=== PATIENT | male | born 1935 | race Caucasian/White ===

== ENCOUNTER → 2017-04-07 | Outpatient (CLI) | payer MEDICARE, OTHER ==
--- NOTE | 2017-04-08 17:02 | RADIOLOGY REPORT (SQ) ---
EXAM DESCRIPTION: PET CT LIMITED COMPLETED DATE/TIME: 04/07/2017 9:49 pm REASON FOR STUDY: PULMONARY NODULE R91.1 SOLITARY PULMONARY NODULE R91.8 OTHER NONSPECIFIC ABNORMA L FINDING OF LUNG FIELD COMPARISON: CT chest 03/12/2017 RADIONUCLIDE AND DOSE: 8.8 mCi F18 FDG The route of agent administration: Intravenous FASTING BLOOD SUGAR: 95 mg/dl CONTRAST TYPE AND DOSE: No CT contrast given. TECHNIQUE: Blood glucose level was verified. Above dose of FDG was injected intravenously. 2-D seg mented attenuation correction images were obtained from the base of the skull to the midthighs. Nonc ontrast CT images were obtained for attenuation correction and fusion with emission images. CT image s were performed without oral or intravenous contrast and are not sensitive for parenchymal lesions. A series of overlapping emission PET images were obtained. Images reviewed and manipulated at [facility] work station by the radiologist. Images stored on PACS. LIMITATIONS: None. FINDINGS: HEAD AND NECK: No areas of abnormal metabolic activity in the soft tissues of the head and neck. CHEST: At the extreme left lung apex, a 2.5 x 2.6 cm spiculated mass is present with SUV 13.4, compat ible with malignancy. Remainder of the lungs demonstrate advanced peripheral pulmonary fibrosis with honeycombing. There i s some low level metabolic activity in the periphery of the right upper lobe adjacent to the major fi ssure, likely indicating active inflammation with SUV of 1.6. No other pulmonary nodules or masses. No pleural effusions. No supraclavicular, hilar, or mediastin al metabolically active adenopathy. ABDOMEN AND PELVIS: No areas of abnormal metabolic activity in the abdomen or pelvis. Expected physi ologic activity is present in the genitourinary system and bowel. PROXIMAL LOWER EXTREMITIES: No areas of abnormal metabolic activity in the soft tissues of the lower extremities. BONES: No abnormal metabolic activity in the visualized skeleton. ADDITIONAL CT FINDINGS: Air-fluid level left maxillary sinus from acute sinusitis. Old sternotomy an d CABG. Mild cardiomegaly. Small hiatal hernia. Left pelvic kidney. OTHER: No other significant findings. IMPRESSION: 2.5 x 2.6 cm spiculated left apical lung mass with SUV of 13.4 No metabolically active supraclavicular, hilar, or mediastinal adenopathy. No PET-CT evidence of dis tant metastatic disease. TECHNICAL DOCUMENTATION: JOB ID: [id number] [employer]- All Rights Reserved
== END ==
LOC: RAD 18:38
PROVIDERS: ATTEND Internal Medicine Critical Care Medicine
DX: R91.1 Solitary pulmonary nodule (principal); J84.10 Pulmonary fibrosis, unspecified
CPT/HCPCS: 78814; A9552

== ENCOUNTER → 2017-08-27 | Outpatient (CLI) | payer MEDICARE, OTHER ==
--- NOTE | 2017-08-27 13:28 | RADIOLOGY REPORT (SQ) ---
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 TECHNIQUE: Frontal and lateral radiographic views of the chest acquired. LIMITATIONS: None. FINDINGS: LUNGS AND PLEURA: Moderate asymmetrical interstitial change greater on the right. No foc al masses. No pleural effusions. Left apical pleural thickening MEDIASTINUM AND HILAR STRUCTURES: No masses or contour abnormalities. HEART AND VASCULATURE: Heart normal size. No evidence for failure. BONY STRUCTURES: No acute findings. HARDWARE: Midline sternotomy wires OTHER: No other significant finding. IMPRESSION: Moderate asymmetrical interstitial change. More prominent than on the previous chest x- ray of 10/13/2015. Differential includes interstitial infiltrate versus asymmetrical interstitial pul monary edema. TECHNICAL DOCUMENTATION: JOB ID: [id number] [employer]- All Rights Reserved
== END ==
LOC: OD 11:53
PROVIDERS: ATTEND Internal Medicine Medical Oncology
DX: C34.92 Malignant neoplasm of unspecified part of left bronchus or lung (principal)
CPT/HCPCS: 71046

== ENCOUNTER → 2018-02-03 | Outpatient (CLI) | payer MEDICARE, OTHER ==
--- NOTE | 2018-02-03 15:30 | RADIOLOGY REPORT (SQ) ---
EXAM DESCRIPTION: CT CHEST WITHOUT COMPLETED DATE/TIME: 02/03/2018 1:07 pm REASON FOR STUDY: J84.9 INTERSTITIAL PULMONARY DISEASE, UNSPECIFIED J84.9 INTERSTITIAL PULMONARY DI SEASE, UNSPECIFIED COMPARISON: 2015. TECHNIQUE: CT scan performed of the chest without intravenous contrast. Images reviewed with lung, soft tissue and bone windows. Reconstructed coronal and sagittal MPR images reviewed. All images st ored on PACS. All CT scanners at this facility use dose modulation, iterative reconstruction, and/or weight based d osing when appropriate to reduce radiation dose to as low as reasonably achievable (ALARA). [facility]: Dose Right [facility]: CareDose [facility]: Dose Right [facility]: Teradose 4D [facility]: Smart Liv[employer] Panels RADIATION DOSE: CT Rad equipment meets quality standard of care and radiation dose reduction techniq ues were employed. CTDIvol: 8.0 mGy. DLP: 308 mGy-cm. mGy. LIMITATIONS: No technical limitations. FINDINGS: LUNGS AND PLEURA: Upper and lower lobe interstitial changes with areas of subpleural fibro sis. Left lower lobe least affected. All lobes involved, however. Slightly progressive left apical scarring compared to prior. No pleural calcification. HILAR AND MEDIASTINAL STRUCTURES: Small nodes suspected. No bulky adenopathy. No esophageal dilatat ion. Small hiatal hernia. HEART AND VASCULAR STRUCTURES: Previous median sternotomy and CABG. No pericardial effusion. No aor tic aneurysm. UPPER ABDOMEN: No significant findings. Limited exam. THYROID AND OTHER SOFT TISSUES: No masses. No adenopathy. BONES: No significant finding. HARDWARE: None in the chest. OTHER: No other significant findings. IMPRESSION: Pulmonary fibrosis. Diffuse upper and lower lobe disease. TECHNICAL DOCUMENTATION: JOB ID: [id number] Quality ID # [id number]: Final reports with documentation of one or more dose reduction techniques (e.g., Au tomated exposure control, adjustment of the mA and/or kV according to patient size, use of iterative reconstruction technique) 2010 [employer]- All Rights Reserved Reading location - IP/workstation name: [email or web address]
== END ==
LOC: RAD 18:04
PROVIDERS: ATTEND Internal Medicine Critical Care Medicine
DX: J84.9 Interstitial pulmonary disease, unspecified (principal)
CPT/HCPCS: 71250

== ENCOUNTER → 2018-03-02 | Outpatient (CLI) | payer MEDICARE, OTHER ==
--- NOTE | 2018-03-03 08:15 | RADIOLOGY REPORT (SQ) ---
EXAM DESCRIPTION: PET CT SKULL/THIGH COMPLETED DATE/TIME: 03/02/2018 8:48 pm REASON FOR STUDY: ABNORMAL FINDINGS OF LUNG FIELD R91.8 OTHER NONSPECIFIC ABNORMAL FINDING OF LUNG FIELD COMPARISON: CT chest 11/22/2015, 02/03/2018 PET-CT 04/07/2017 RADIONUCLIDE AND DOSE: 12.8 mCi F18 FDG The route of agent administration: Intravenous FASTING BLOOD SUGAR: 101 mg/dl CONTRAST TYPE AND DOSE: No CT contrast given. TECHNIQUE: Blood glucose level was verified. Above dose of FDG was injected intravenously. 2-D seg mented attenuation correction images were obtained from the base of the skull to the midthighs. Nonc ontrast CT images were obtained for attenuation correction and fusion with emission images. CT image s were performed without oral or intravenous contrast and are not sensitive for parenchymal lesions. A series of overlapping emission PET images were obtained. Images reviewed and manipulated at [facility] work station by the radiologist. Images stored on PACS. LIMITATIONS: None. FINDINGS: HEAD AND NECK: No areas of abnormal metabolic activity in the soft tissues of the head and neck. CHEST: There is bandlike consolidation at the left lung apex, similar compared to 02/03/2018 CT chest likely lung fibrosis post radiation therapy for apical tumor. In this area, minimal metabolic activi ty SUV 2.1 is present (original mass on PET-CT 04/07/2017 left lung apex SUV 13.4). Remainder of the lungs exhibit extensive changes of interstitial pulmonary fibrosis with honeycomb ap pearance of both mid and lower lungs. There is patchy metabolic activity in the right lower lobe ran ging from 1.5 to 3.2 SUV. Patchy uptake left lower lobe SUV 2.0. This could represent superimposed pneumonia. No pleural effusions. No pneumothorax. No other dominant lung parenchymal mass. ABDOMEN AND PELVIS: No areas of abnormal metabolic activity in the abdomen or pelvis. Expected physi ologic activity is present in the genitourinary system and bowel. PROXIMAL LOWER EXTREMITIES: No areas of abnormal metabolic activity in the soft tissues of the lower extremities. BONES: No abnormal metabolic activity in the visualized skeleton. ADDITIONAL CT FINDINGS: Heavily calcified carotid bifurcations. Scleral band right globe. Hiatal he rnia. Old sternotomy for CABG. Cardiomegaly. Left pelvic kidney. Radiotherapy prostate treatment seeds OTHER: Liver background activity 1.9 SUV. Blood pool background activity 1.5 SUV IMPRESSION: Post left apical lung mass radiation therapy. Bandlike fibrosis at the lung apex is pre sent with significant decrease in SUV compared to PET-CT 04/07/2017. End-stage appearance of pulmonary fibrosis in both lungs with patchy metabolic activity, could repres ent active inflammation or patchy pneumonia. TECHNICAL DOCUMENTATION: JOB ID: [id number] [employer]- All Rights Reserved Reading location - IP/workstation name: [email or web address]
== END ==
LOC: RAD 18:01
PROVIDERS: ATTEND Internal Medicine Critical Care Medicine
DX: R91.8 Other nonspecific abnormal finding of lung field (principal)
CPT/HCPCS: 78815; A9552

== ENCOUNTER 2018-03-29 00:36 | Inpatient (IN) | payer MEDICARE, OTHER ==
[2018-03-29] MEDS ORDERED: IPRATROPIUM/ALBUTEROL 0.5-2.5 MG/3 ML AMPUL NEB ONE (00:58)
--- NOTE | 2018-03-29 00:58 | ER Document Report ---
ED General - General Stated Complaint: DIFFICULTY BREATHING Time Seen by Provider: 03/29/18 00:46 Notes: Patient is an 82-year-old male with a history of COPD, CHF, coronary disease. He presents with difficulty breathing. He also says he has a history of cystic fibrosis. He says is followed by the [facility], Dr. Daniel. I question whether not he really has true cystic fibrosis as I have never seen a cystic fibrosis patient lifted the age of 82. He could potentially mean pulmonary fibrosis. I did review his previous admission records and do not see cystic fibrosis listed anywhere in his previous H&P's. Patient says he has had positive difficulty breathing today. He wears 6 L oxygen at home normally. Medics that it could be some stress related being that water is starting to encroach on the house and they are anxious about that. He is a former smoker. Denies any chest pain. No recent fevers or infections. No other complaints at this time. TRAVEL OUTSIDE OF THE [place] IN LAST 30 DAYS: No - Related Data Allergies/Adverse Reactions: Sulfa (Sulfonamide Antibiotics) Allergy (Severe, Verified 01/02/12 08:50) hallucinates Past Medical History - Social History Smoking Status: Former Smoker Frequency of alcohol use: None Drug Abuse: None Family History: Reviewed & Not Pertinent - Past Medical History Cardiac Medical History: Reports: Hx Coronary Artery Disease, Hx Hypertension Denies: Hx Heart Attack - JUST PX BREATHING,DISCOVERED HEART ISSUES Pulmonary Medical History: Reports: Hx Asthma - quit taking symbicort, Hx COPD - hx tb 1992 Denies: Hx Bronchitis, Hx Pneumonia Neurological Medical History: Denies: Hx Cerebrovascular Accident, Hx Seizures GI Medical History: Denies: Hx Hepatitis, Hx Hiatal Hernia, Hx Ulcer Musculoskeletal Medical History: Reports Hx Arthritis Infectious Medical History: Denies: Hx Hepatitis Past Surgical History: Reports: Hx Cardiac Surgery - bypass 2013, Hx Genitourinary Surgery - Hernia repair, Hx Open Heart Surgery - CABG 2014,. Denies: Hx Pacemaker - Immunizations Hx Diphtheria, Pertussis, Tetanus Vaccination: No Hx Pneumococcal Vaccination: 04/14/11 Review of Systems - Review of Systems Notes: My Normal Review Basic REVIEW OF SYSTEMS: CONSTITUTIONAL : Denies fever, chills, or sweats. Denies recent illness. EENT: Denies eye, ear, throat, or mouth pain or symptoms. Denies nasal or sinus congestion. CARDIOVASCULAR: Denies chest pain. RESPIRATORY: difficulty breathing GASTROINTESTINAL: Denies abdominal pain. Denies nausea, vomiting, or diarrhea. GENITOURINARY: Denies difficulty urinating, painful urination, burning, frequency, or blood in urine. MUSCULOSKELETAL: Denies neck or back pain or joint pain or swelling. SKIN: Denies rash or skin lesions. NEUROLOGICAL: Denies altered mental status or loss of consciousness. Denies headache. Denies weakness or paralysis or loss of use of either side. Denies problems with gait or speech. Denies sensory or motor loss. ALL OTHER SYSTEMS REVIEWED AND NEGATIVE. Physical Exam - Vital signs Vitals: Temp Resp BP Pulse Ox 99 F 14 127/69 H 97 03/29/18 00:57 03/29/18 00:57 03/29/18 00:57 03/29/18 00:57 - Notes Notes: General Appearance: Well nourished, alert, cooperative, no acute distress, no obvious discomfort. Low bit anxious. Vitals: reviewed, See vital signs table. Head: no swelling or tenderness to the head Eyes: PERRL, EOMI, Conjuctiva clear Mouth: No decreasd moisture Throat: No tonsillar inflammation, No airway obstruction, No lymphadenopathy Neck: Supple, no neck tenderness, Lungs: No wheezing, No rales, few scattered rhonchi in bases., No accessory muscle use, good air exchange bilaterally. Heart: Normal rate, Regular rythm, No murmur, no rub Abdomen: Normal BS, soft, No rigidity, No abdominal tenderness, No guarding, no rebound, Extremities: strength 5/5 in all extremities, good pulses in all extremities, no swelling or tenderness in the extremities, no edema. Skin: warm, dry, appropriate color, no rash Neuro: speech clear, oriented x 3, normal affect, responds appropriately to questions. Course - Re-evaluation Re-evalutation: 03/29/18 01:58 Patient stood up to urinate became very short of breath his oxygen saturation went into the 70s. Patient says that he will sometimes do this at home however I do not think that is accurate as I do not believe the patient regularly would desaturate to the 70s. His oxygen saturation is still in the 80s despite him sit down and not moving. I will place him on BiPAP as I feel this will better oxygenate him. Patient is agreeable to this plan. Lung real still does have some mild rhonchi in the bases but otherwise are clear. 03/29/18 06:35 Patient continues to have desaturations when taken off the BiPAP. I did speak with the hospitalist, Dr. Wilson, who agrees to admit the patient. Dictation of this chart was performed using voice recognition software; therefore, there may be some unintended grammatical errors. - Vital Signs Vital signs: Temp Pulse Resp BP Pulse Ox 99 F 14 132/75 H 98 03/29/18 00:57 03/29/18 06:01 03/29/18 06:01 03/29/18 06:01 - Laboratory Result Diagrams: 03/29/18 00:42 03/29/18 00:42 Laboratory results interpreted by me: 03/29/18 03/29/18 03/29/18 00:42 00:42 00:42 Hgb 12.9 L RDW 16.4 H Seg Neutrophils % 85.5 H Lymphocytes % 5.8 L Absolute Neutrophils 8.6 H VBG pH 7.45 H Sodium 130.7 L Chloride 93 L Glucose 113 H Direct Bilirubin 0.5 H Total Protein 6.0 L - EKG Interpretation by Me Additional EKG results interpreted by me: 03/29/18 00:57 EKG is reviewed and interpreted by me. EKG shows sinus rhythm with a rate of 91 bpm. Patient does have a left bundle branch block causing mild ST segment depression in leads V5 and V6. This is unchanged comparison to his old EKG from October 13, 2015. Discharge - Discharge Clinical Impression: Hypoxemia, Shortness of breath Condition: Stable Disposition: ADMITTED OBSERVATION Admitting Provider: Hospitalist Unit Admitted: Telemetry
[2018-03-29] MEDS ORDERED: DIPHENHYDRAMINE HCL 50 MG/ML VIAL IV ONE (01:05)
[2018-03-29 01:11] LABS: ABSOLUTE EOSINOPHILS # (AUTO) 0.1 10^3/uL (0.0-0.6); ABSOLUTE LYMPHOCYTES (AUTO) 0.6 10^3/uL (0.5-4.7); ABSOLUTE MONOCYTES (AUTO) 0.7 10^3/uL (0.1-1.4); ABSOLUTE NEUT (AUTO) 8.6 10^3/uL (1.7-8.2); BASOPHILS % (AUTO) 0.3 % (0-2); EOSINOPHILS % (AUTO) 1.2 % (0-6); HEMOGLOBIN 12.9 g/dL (13.5-17.0); LYMPHOCYTES % (AUTO) 5.8 % (13-45); MEAN CORPUSCULAR HEMOGLOBIN 28.8 pg (27.0-33.4); MEAN CORPUSCULAR HGB CONC 33.8 g/dL (32.0-36.0); MEAN CORPUSCULAR VOLUME 85 fl (80-97); MONOCYTES % (AUTO) 7.2 % (3-13); PLATELET COUNT 240 10^3/uL (150-450); RED BLOOD COUNT 4.46 10^6/uL (4.35-5.55); RED CELL DISTRIBUTION WIDTH 16.4 % (11.5-14.0); SEGMENTED NEUTROPHILS % (AUTO) 85.5 % (42-78); TOTAL CELLS COUNTED % (AUTO) 100 %; WHITE BLOOD COUNT 10.1 10^3/uL (4.0-10.5)
[2018-03-29 01:28] LABS: ALANINE AMINOTRANSFERASE 27 U/L (21-72); ALBUMIN 3.5 g/dL (3.5-5.0); ALKALINE PHOSPHATASE 63 U/L (38-126); ANION GAP 10 (5-19); ASPARTATE AMINO TRANSFERASE 23 U/L (17-59); BILIRUBIN,DIRECT 0.5 mg/dL (0.0-0.4); BILIRUBIN,TOTAL 0.8 mg/dL (0.2-1.3); BLOOD UREA NITROGEN 20 mg/dL (7-20); CALCIUM 9.1 mg/dL (8.4-10.2); CARBON DIOXIDE 28 mmol/L (22-30); CHLORIDE 93 mmol/L (98-107); GLUCOSE 113 mg/dL (75-110); POTASSIUM 4.7 mmol/L (3.6-5.0); SODIUM 130.7 mmol/L (137-145)
--- NOTE | 2018-03-29 01:37 | RADIOLOGY REPORT (SQ) ---
XR CHEST 1 VIEW HISTORY: dyspnea. COMPARISON: 08/27/2017 FINDINGS/IMPRESSION: Cardiomegaly status post median sternotomy. Pulmonary vasculature is unremarkable. Diffuse bilateral reticulation, right greater than left. Superimposed infection is a possibility. No large pleural effusions are seen. No acute osseous findings.
[2018-03-29 02:17] LABS: VENOUS BLOOD BASE EXCESS 4.4 mmol/L; VENOUS BLOOD HCO3 28.8 mmol/L (20-32); VENOUS BLOOD PCO2 42.6 mmHg (35-63); VENOUS BLOOD PH 7.45 (7.30-7.42)
[2018-03-29] MEDS ORDERED: METHYLPREDNISOLONE INJ 125 MG/2 ML SDV IV ONE (02:40)
[2018-03-29] MEDS ORDERED: HYDRALAZINE HCL INJ/PF 20 MG/1 ML SDV IV PRN (04:09)
[2018-03-29] MEDS ORDERED: GUAIFENESIN SYRP 200 MG/10 ML UDC PO PRN (04:09)
[2018-03-29] MEDS ORDERED: CHLORPHENIRAMINE MALEATE 4 MG TABLET PO ONE (04:09)
[2018-03-29] MEDS ORDERED: IPRATROPIUM/ALBUTEROL 0.5-2.5 MG/3 ML AMPUL NEB PRN (04:09)
[2018-03-29] MEDS ORDERED: PREDNISONE 20 MG TABLET PO ONE (04:30)
[2018-03-29] MEDS ORDERED: FLUTICASONE NASAL SPRAY 50 MCG/SPRY 120 SPRAY/16 GM NASL ONE (04:30)
[2018-03-29] MEDS: ACETAMINOPHEN 325 MG TABLET PO PRN ×2 (05:09→15:15)
[2018-03-29] MEDS: HEPARIN SOD (PORCINE) 5,000 UNIT/ML 1 ML SYRINGE SUBCUT SCH ×3 (05:10→22:11)
[2018-03-29] MEDS ORDERED: KETOROLAC TROMETHAMINE INJ/PF 30 MG/1 ML SDV IV PRN (05:25)
--- NOTE | 2018-03-29 05:39 | PDOC H&P ---
History of Present Illness Admission Date/PCP: 03/29/18 04:29 BRIJESH WHITE MD Patient complains of: Shortness of breath History of Present Illness: JOSUE REINA is a 82 year old male with past medical history of COPD, pulmonary fibrosis, obstructive sleep apnea with oxygen dependence presents with several days of worsening shortness from baseline. He denies rhinorrhea, sore throat, GERD, productive cough. In the emergency room he is found to be hypoxic with O2 saturations in the mid 80s requiring BiPAP with 50% oxygen. He denies recent change in medications. He is referred to the hospitalist for admission. Past Medical History Cardiac Medical History: Reports: Coronary Artery Disease, Hypertension Denies: Myocardial Infarction - JUST PX BREATHING,DISCOVERED HEART ISSUES Pulmonary Medical History: Reports: Asthma - quit taking symbicort, Bronchitis, Chronic Obstructive Pulmonary Disease (COPD) - hx tb 1992, Other - Pulmonary fibrosis Denies: Pneumonia Neurological Medical History: Denies: Seizures GI Medical History: Denies: Hepatitis, Hiatal Hernia Musculoskeltal Medical History: Reports: Arthritis Hematology: Denies: Anemia, Sickle Cell Disease Past Surgical History Past Surgical History: Denies: Pacemaker Social History Information Source: Patient Smoking Status: Former Smoker Frequency of Alcohol Use: None Hx Recreational Drug Use: No Hx Prescription Drug Abuse: No - Advance Directive Resuscitation Status: Full Code Family History Family History: COPD, Hypertension Parental Family History Reviewed: Yes Children Family History Reviewed: Yes Sibling(s) Family History Reviewed.: Yes Medication/Allergy Home Medications: Isosorbide Mononitrate [Imdur] 30 mg PO DAILY 01/02/12 Nitroglycerin [Nitrostat 0.4 mg (1/150 Gr) Tabs 25/Bottle] 0.4 mg SL PRN PRN 03/07 Ranolazine [Ranexa] 1,000 mg PO BID 01/02/12 Terazosin HCl 5 mg PO QAM 01/02/12 Terazosin HCl 10 mg PO PCSUPPER 01/02/12 Zolpidem Tartrate [Ambien 10 mg Tablet] 12.5 mg PO QHS PRN 01/02/12 Tramadol HCl [Ultram 50 mg Tablet] 100 mg PO Q6HP PRN 08/12/15 Guaifenesin [Mucinex Sr 600 mg Tablet.sa] 1,200 mg PO Q12 #60 tablet.sa Albuterol Sulfate [Proair Respiclick] 90 mcg IH DAILY 04/18/16 Atorvastatin Calcium [Lipitor 10 mg Tablet] 10 mg PO QHS 04/18/16 Besifloxacin HCl [Besivance Drops] 1 drop OP .3 & 8 PM TODAY PRN 04/18/16 Budesonide/Formoterol Fumarate [Symbicort Hfa 160-4.5 Mcg Inhaler 6 gm] 2 puff IH Q12 04/18/16 Calcium/Mag Oxide/Vitamin D3 [Coral Calcium Capsule] 1 cap PO DAILY 04/18/16 Cartilage/Collagen/Bor/Hyalur [Joint Health Tablet] 1 each PO DAILY 04/18/16 Centrum Silver Men 1 tab PO DAILY 04/18/16 Cetirizine HCl [Cetirizine 5 mg Tablet] 5 mg PO BID 04/18/16 Clopidogrel Bisulfate [Plavix 75 mg Tablet] 75 mg PO DAILY 04/18/16 Difluprednate [Durezol] 1 drop OP .3 & 8 PM TODAY 04/18/16 Ergocalciferol (Vitamin D2) [Vitamin D] 400 unit PO DAILY 04/18/16 Folic Acid 0.4 mg PO DAILY 04/18/16 Furosemide 20 mg PO DAILY 04/18/16 Ipratropium/Albuterol Sulfate [Combivent Respimat Inhal [place]] 4 gm IH Q4H 04/18 Bob Lycopene 15 mg PO DAILY 04/18/16 Metoprolol Tartrate 12.5 mg PO BID 04/18/16 Montelukast Sodium 10 mg PO QHS 04/18/16 Nepafenac [Ilevro] 1 drop OP .3 & 8 PM TODAY 04/18/16 Pomegranate Fruit Extract [Pomegranate] 250 mg PO DAILY 04/18/16 Potassium Chloride 10 meq PO DAILY 04/18/16 Ubidecarenone [Co Q-10] 200 mg PO DAILY 04/18/16 Allergies/Adverse Reactions: Sulfa (Sulfonamide Antibiotics) Allergy (Severe, Verified 01/02/12 08:50) hallucinates Review of Systems Constitutional: ABSENT: chills, fever(s), headache(s), weight gain, weight loss Eyes: ABSENT: visual disturbances Ears: ABSENT: hearing changes Cardiovascular: ABSENT: chest pain, dyspnea on exertion, edema, orthropnea, palpitations Respiratory: ABSENT: cough, hemoptysis Gastrointestinal: ABSENT: abdominal pain, constipation, diarrhea, hematemesis, hematochezia, nausea, vomiting Genitourinary: ABSENT: dysuria, hematuria Musculoskeletal: ABSENT: joint swelling Integumentary: ABSENT: rash, wounds Neurological: ABSENT: abnormal gait, abnormal speech, confusion, dizziness, focal weakness, syncope Psychiatric: ABSENT: anxiety, depression, homidical ideation, suicidal ideation Endocrine: ABSENT: cold intolerance, heat intolerance, polydipsia, polyuria Hematologic/Lymphatic: ABSENT: easy bleeding, easy bruising Physical Exam Vital Signs: Temp Pulse Resp BP Pulse Ox 99 F 23 H 97/51 L 97 03/29/18 00:57 03/29/18 03:01 03/29/18 03:01 03/29/18 03:01 General appearance: PRESENT: cooperative, mild distress, well-developed, well- nourished. ABSENT: disheveled Head exam: PRESENT: atraumatic, normocephalic Eye exam: PRESENT: conjunctiva pink, EOMI, PERRLA. ABSENT: scleral icterus Ear exam: PRESENT: normal external ear exam Mouth exam: PRESENT: moist, tongue midline Neck exam: ABSENT: carotid bruit, JVD, lymphadenopathy, thyromegaly Respiratory exam: PRESENT: accessory muscle use, crackles, decreased breath sounds, prolonged expiratory phas, symmetrical, tachypnea. ABSENT: rales, rhonchi, wheezes Cardiovascular exam: PRESENT: RRR. ABSENT: diastolic murmur, rubs, systolic murmur Pulses: PRESENT: normal dorsalis pedis pul Vascular exam: PRESENT: normal capillary refill GI/Abdominal exam: PRESENT: normal bowel sounds, soft. ABSENT: distended, guarding, mass, organolmegaly, rebound, tenderness Rectal exam: PRESENT: deferred Extremities exam: PRESENT: full ROM. ABSENT: calf tenderness, clubbing, pedal edema Neurological exam: PRESENT: alert, awake, oriented to person, oriented to place , oriented to time, oriented to situation, CN II-XII grossly intact. ABSENT: motor sensory deficit Psychiatric exam: PRESENT: appropriate affect, normal mood. ABSENT: homicidal ideation, suicidal ideation Skin exam: PRESENT: dry, intact, warm. ABSENT: cyanosis, rash Results Impressions: Chest X-Ray 09/15/18 00:46 FINDINGS/IMPRESSION: Cardiomegaly status post median sternotomy. Pulmonary vasculature is unremarkable. Diffuse bilateral reticulation, right greater than left. Superimposed infection is a possibility. No large pleural effusions are seen. No acute osseous findings. Assessment & Plan - Diagnosis (1) Acute exacerbation of chronic bronchitis Is this a current diagnosis for this admission?: Yes Plan: Supplemental oxygen, steroids, PEEP valve and empiric antibiotics. (2) Pulmonary fibrosis Is this a current diagnosis for this admission?: Yes Plan: BiPAP and stress dose steroids tapered to p.o. (3) COPD exacerbation Is this a current diagnosis for this admission?: Yes Plan: Please see #1 and 2, incentive spirometry, flutter valve and BiPAP - Time Time Spent: 50 to 70 Minutes - Inpatient Certification Medical Necessity: Need Close Monitoring Due to Risk of Patient Decompensation
[2018-03-29] MEDS: TRAMADOL HCL 50 MG TABLET PO PRN ×3 (05:46→22:10)
[2018-03-29] MEDS ORDERED: HEPARIN SOD (PORCINE) 5,000 UNIT/ML 1 ML SYRINGE SUBCUT SCH (06:00)
[2018-03-29 06:33] LABS: CREATINE KINASE MB 1.21 ng/mL (<4.55)
[2018-03-29 06:36] LABS: TROPONIN I < 0.012 ng/mL
[2018-03-29] MEDS ORDERED: TERAZOSIN HCL 5 MG PO SCH (08:00)
[2018-03-29] MEDS: DOXAZOSIN MESYLATE 4 MG TABLET PO SCH (09:00)
[2018-03-29] MEDS: IPRATROPIUM/ALBUTEROL 0.5-2.5 MG/3 ML AMPUL NEB SCH ×3 (09:00→20:01)
[2018-03-29] MEDS: METOPROLOL TARTRATE 25 MG TABLET PO SCH ×2 (09:05→22:10)
[2018-03-29] MEDS: CLOPIDOGREL BISULFATE 75 MG TABLET PO SCH (09:05)
[2018-03-29] MEDS: ISOSORBIDE MONONITRATE 30 MG TAB.ER.24H PO SCH (09:06)
[2018-03-29] MEDS ORDERED: CALCIUM PO SCH (10:00)
[2018-03-29] MEDS ORDERED: LEVOFLOXACIN 750 MG/D5W RTU 750 MG/150 ML RTUPB IV SCH (10:00)
[2018-03-29] MEDS ORDERED: [UNRECOGNIZED DRUG - OTHER] PO SCH (10:00)
[2018-03-29] MEDS ORDERED: MAGNESIUM OXIDE PO SCH (10:00)
[2018-03-29] MEDS: CALCIUM CARBONATE 250 MG/VITAMIN D3 125 UNIT TABLET PO SCH (14:35)
[2018-03-29] MEDS ORDERED: ALPRAZOLAM 0.25 MG TABLET ONE (17:26)
[2018-03-29] MEDS: PREDNISONE 20 MG TABLET PO SCH (17:28)
--- NOTE | 2018-03-29 17:57 | PDOC PROGRESS REPORT ---
Subjective Progress Note for:: 03/29/18 Subjective:: The patient is an 82-year-old male with past medical history of COPD, end-stage pulmonary fibrosis, MARI with oxygen dependence, lung cancer status post radiation therapy followed by Dr. Landin, hypertension, CAD, arthritis, restless leg syndrome, and anemia who was admitted on 03/29/18 for acute on chronic respiratory failure secondary to COPD exacerbation. The patient was seen on morning rounds; he was found sitting upright to the edge of his stretcher in the emergency department on supplemental oxygen at his baseline of 6 L/min via nasal cannula. Patient states that he presented to the emergency department today due to increased dyspnea and states that his breathing does not feel much improved from last night. He does admit to baseline dyspnea while at rest increases dramatically with exertion and a chronic cough. He denies fever, chills, chest pain, orthopnea, abdominal pain, nausea and vomiting. He has no other questions or concerns at this time. No concerns per nursing. Reason For Visit: COPD,EXACERBATION Physical Exam Vital Signs: Temp Pulse Resp BP Pulse Ox 98.2 F 92 21 H 137/68 H 99 03/29/18 15:34 03/29/18 15:34 03/29/18 15:34 03/29/18 15:34 03/29/18 15:34 Intake & Output 03/28/18 03/29/18 03/30/18 06:59 06:59 06:59 Output Total 150 Balance -150 Weight 69.2 kg General appearance: PRESENT: disheveled, mild distress, well-developed, well- nourished Head exam: PRESENT: atraumatic, normocephalic Eye exam: PRESENT: conjunctiva pink, EOMI, PERRLA. ABSENT: scleral icterus Ear exam: PRESENT: normal external ear exam Mouth exam: PRESENT: moist, tongue midline Teeth exam: PRESENT: poor dentation Neck exam: ABSENT: carotid bruit, JVD, lymphadenopathy, thyromegaly Respiratory exam: PRESENT: prolonged expiratory phas, rhonchi, symmetrical, tachypnea, wheezes - Expiratory wheezing. ABSENT: rales Cardiovascular exam: PRESENT: RRR. ABSENT: diastolic murmur, rubs, systolic murmur Pulses: PRESENT: normal dorsalis pedis pul Vascular exam: PRESENT: normal capillary refill GI/Abdominal exam: PRESENT: normal bowel sounds, soft. ABSENT: distended, guarding, mass, organolmegaly, rebound, tenderness Rectal exam: PRESENT: deferred Extremities exam: PRESENT: full ROM. ABSENT: calf tenderness, clubbing, pedal edema Neurological exam: PRESENT: alert, awake, oriented to person, oriented to place , oriented to time, oriented to situation, CN II-XII grossly intact. ABSENT: motor sensory deficit Psychiatric exam: PRESENT: appropriate affect, normal mood. ABSENT: homicidal ideation, suicidal ideation Skin exam: PRESENT: dry, intact, warm. ABSENT: cyanosis, rash Results Laboratory Results: 03/29/18 03/29/18 05:43 05:43 Creatine Kinase 28 L CK-MB (CK-2) 1.21 Troponin I < 0.012 Impressions: Chest X-Ray 03/29/18 00:46 FINDINGS/IMPRESSION: Cardiomegaly status post median sternotomy. Pulmonary vasculature is unremarkable. Diffuse bilateral reticulation, right greater than left. Superimposed infection is a possibility. No large pleural effusions are seen. No acute osseous findings. Assessment & Plan - Diagnosis (1) Acute and chronic respiratory failure with hypoxia Is this a current diagnosis for this admission?: Yes Plan: The patient presented with acute worsening of his chronic respiratory failure evidenced by tachypnea (RR 27) and hypoxia (SPO2 70%) on his home oxygen requirement at 6 L/min via nasal cannula requiring continuous BiPAP secondary to COPD exacerbation in the setting of pulmonary fibrosis, lung cancer status post radiation treatments, and CHF. Chest x-ray revealed chronic pulmonary fibrosis; possibility of overlying infection cannot be ruled out. The patient is admitted to the medical floor on continuous cardiac telemetry. He is provided supplemental oxygen as needed to maintain his oxygen saturations greater than 88%. BiPAP nightly and as needed. Scheduled and as needed nebulizer treatments. Mucinex twice daily. The patient was provided IV Solu-Medrol 125 mg is 1 times dose by the ED provider; will continue oral prednisone therapy. (2) Hypertension Is this a current diagnosis for this admission?: Yes Plan: The patient's home medications metoprolol, isosorbide, and Cardura are continued. IV hydralazine as needed for blood pressure control. (3) Hyperlipidemia Is this a current diagnosis for this admission?: Yes Plan: We will continue the patient's home dose atorvastatin. (4) Pulmonary fibrosis Is this a current diagnosis for this admission?: Yes Plan: Plan as above. (5) COPD exacerbation Is this a current diagnosis for this admission?: Yes Plan: Plan as above. (6) CAD (coronary artery disease) Is this a current diagnosis for this admission?: Yes Plan: Patient has a history of CAD, hypertension, hyperlipidemia, CABG in 2013 and 2014. Stable and without chest pain at this time. We will continue his home medications as above. We will monitor on continuous cardiac telemetry. (7) CHF (congestive heart failure) Qualifiers: Heart failure chronicity: chronic Is this a current diagnosis for this admission?: Yes Plan: Patient with history of CHF. Echocardiogram (2016) revealed LVEF 60%, mild pulmonary hypertension. Last BMP from 2016 was normal. No evidence of fluid volume overload; CXR reveals extensive pulmonary fibrosis, difficult to assess for pulmonary edema. He does have coarse rhonchi throughout. No peripheral edema. We will continue to trend troponins and reassess proBNP. - Time Time Spent with patient: 25-34 minutes Medications reviewed and adjusted accordingly: Yes Anticipated discharge: Home - Inpatient Certification Based on my medical assessment, after consideration of the patient's comorbidities, presenting symptoms, or acuity I expect that the services needed warrant INPATIENT care.: Yes I certify that my determination is in accordance with my understanding of Medicare's requirements for reasonable and necessary INPATIENT services [42 CFR 412.3e].: Yes Medical Necessity: Significant Comorbidiites Make Outpatient Treatment Too Risky , Need Close Monitoring Due to Risk of Patient Decompensation, Need for Nebulizer Therapy and Monitoring of Response
[2018-03-29] MEDS: RANOLAZINE 500 MG TAB.SR.12H PO SCH (20:48)
[2018-03-29] MEDS: CETIRIZINE 5 MG TABLET PO SCH (20:48)
--- NOTE | 2018-03-29 21:23 | EKG REPORT ---
SEVERITY:- ABNORMAL ECG - SINUS RHYTHM LEFT BUNDLE BRANCH BLOCK : Confirmed by: Goldy Carrillo 29-Mar-2018 21:22:21
[2018-03-29] MEDS ORDERED: FLUTICASONE NASAL SPRAY 50 MCG/SPRY 120 SPRAY/16 GM NASL SCH (22:00)
[2018-03-29] MEDS: ATORVASTATIN CALCIUM 10 MG TABLET PO SCH (22:09)
[2018-03-29] MEDS: FLUTICASONE NASAL SPRAY 50 MCG/SPRY 120 SPRAY/16 GM NASL SCH (22:11)
[2018-03-29] MEDS: MONTELUKAST SODIUM 10 MG TABLET PO SCH (22:12)
[2018-03-29] MEDS: ZOLPIDEM TARTRATE 5 MG TABLET PO SCH (23:08)
[2018-03-29] MEDS ORDERED: TRAZODONE HCL 50 MG TABLET PO ONE (23:30)
[2018-03-30] MEDS: ACETAMINOPHEN 325 MG TABLET PO PRN ×2 (00:15→13:23)
[2018-03-30] MEDS: ALPRAZOLAM 0.5 MG TABLET PO PRN (00:15)
[2018-03-30] MEDS ORDERED: ROPINIROLE HCL 0.25 MG TABLET PO PRN (01:10)
[2018-03-30] MEDS: IPRATROPIUM/ALBUTEROL 0.5-2.5 MG/3 ML AMPUL NEB SCH ×4 (02:00→20:27)
[2018-03-30] MEDS: HEPARIN SOD (PORCINE) 5,000 UNIT/ML 1 ML SYRINGE SUBCUT SCH ×3 (05:41→21:47)
[2018-03-30 05:43] LABS: HEMATOCRIT 35.1 % (37.9-51.0); HEMOGLOBIN 11.9 g/dL (13.5-17.0); MEAN CORPUSCULAR HEMOGLOBIN 28.3 pg (27.0-33.4); MEAN CORPUSCULAR HGB CONC 33.8 g/dL (32.0-36.0); MEAN CORPUSCULAR VOLUME 84 fl (80-97); PLATELET COUNT 218 10^3/uL (150-450); RED BLOOD COUNT 4.19 10^6/uL (4.35-5.55); RED CELL DISTRIBUTION WIDTH 15.7 % (11.5-14.0); WHITE BLOOD COUNT 11.5 10^3/uL (4.0-10.5)
[2018-03-30 05:46] LABS: ANION GAP 8 (5-19); BLOOD UREA NITROGEN 20 mg/dL (7-20); CARBON DIOXIDE 27 mmol/L (22-30); CHLORIDE 93 mmol/L (98-107); GLUCOSE 116 mg/dL (75-110); POTASSIUM 4.4 mmol/L (3.6-5.0); SODIUM 127.7 mmol/L (137-145)
[2018-03-30 06:01] LABS: ABSOLUTE LYMPHOCYTES# (MANUAL) 0.5 10^3/uL (0.5-4.7); ABSOLUTE MONOCYTES # (MANUAL) 0.6 10^3/uL (0.1-1.4); ABSOLUTE NEUTROPHILS# (MANUAL) 10.5 10^3/uL (1.7-8.2); BASOPHILS % (MANUAL) 0 % (0-2); EOSINOPHILS % (MANUAL) 0 % (0-6); LYMPHOCYTES % (MANUAL) 4 % (13-45); MONOCYTES % (MANUAL) 5 % (3-13); SEGMENTED NEUTROPHILS % (MAN) 91 % (42-78); TOTAL CELLS COUNTED 100
[2018-03-30 06:02] LABS: ANISOCYTOSIS SLIGHT; OVALOCYTES SLIGHT; PLATELET COMMENT ADEQUATE; TOXIC GRANULATION SLIGHT
[2018-03-30] MEDS: TRAMADOL HCL 50 MG TABLET PO PRN ×3 (07:08→21:31)
[2018-03-30] MEDS ORDERED: NORMAL SALINE 1000 ML 1,000 ML IV PRN (08:07)
[2018-03-30] MEDS: DOXAZOSIN MESYLATE 4 MG TABLET PO SCH (09:34)
[2018-03-30] MEDS: CLOPIDOGREL BISULFATE 75 MG TABLET PO SCH (09:34)
[2018-03-30] MEDS: METOPROLOL TARTRATE 25 MG TABLET PO SCH ×2 (09:35→21:32)
[2018-03-30] MEDS: PREDNISONE 20 MG TABLET PO SCH ×2 (09:35→18:07)
[2018-03-30] MEDS: CALCIUM CARBONATE 250 MG/VITAMIN D3 125 UNIT TABLET PO SCH (09:35)
[2018-03-30] MEDS: ISOSORBIDE MONONITRATE 30 MG TAB.ER.24H PO SCH (09:35)
[2018-03-30] MEDS: LEVOFLOXACIN 750 MG TABLET PO SCH (09:35)
[2018-03-30] MEDS: FUROSEMIDE 40 MG TABLET PO SCH (09:36)
[2018-03-30] MEDS: FLUTICASONE NASAL SPRAY 50 MCG/SPRY 120 SPRAY/16 GM NASL SCH ×2 (09:37→21:33)
[2018-03-30] MEDS: RANOLAZINE 500 MG TAB.SR.12H PO SCH ×2 (09:39→18:08)
[2018-03-30] MEDS: CETIRIZINE 5 MG TABLET PO SCH ×2 (09:40→18:08)
[2018-03-30] MEDS: NORMAL SALINE 1000 ML 1,000 ML IV PRN (12:00)
[2018-03-30 14:13] LABS: APPEARANCE,URINE CLEAR; BILIRUBIN,URINE NEGATIVE (NEGATIVE); COLOR,URINE YELLOW; GLUCOSE, URINE NEGATIVE (NEGATIVE); KETONES,URINE NEGATIVE (NEGATIVE); LEUKOCYTE ESTERASE,URINE NEGATIVE (NEGATIVE); NITRITE,URINE NEGATIVE (NEGATIVE); PROTEIN,URINE NEGATIVE (NEGATIVE); UROBILINOGEN,URINE NEGATIVE mg/dL (<2.0)
[2018-03-30 14:46] LABS: OSMOLALITY,URINE 295 mOsm/kg (300-900)
[2018-03-30 14:57] LABS: URINE SODIUM 26 mmol/L (30-90)
--- NOTE | 2018-03-30 16:11 | PDOC PROGRESS REPORT ---
Subjective Progress Note for:: 03/30/18 Subjective:: The patient is an 82-year-old male with past medical history of COPD, end-stage pulmonary fibrosis, MARI with oxygen dependence, lung cancer status post radiation therapy followed by Dr. Landin, hypertension, CAD, arthritis, restless leg syndrome, and anemia who was admitted on 03/29/18 for acute on chronic respiratory failure secondary to COPD exacerbation. The patient was seen on afternoon rounds; he was found resting in bed comfortably on supplemental oxygen at 4 L/min. initially he is found sleeping but he does wake easily when I say his name. He tells me that he is feeling much better today; confirming that he is at his baseline respiratory status. He does not currently have dyspnea but does feel slightly short of breath with minimal activity. He denies cough, palpitations, chest pain. His primary concern is his restless leg syndrome and requests that we increase the frequency or dosing of the medication as that did seem to help slightly last night. Otherwise, he has no questions or concerns at this time. Nursing reports that the patient has very dark urine; patient denies dysuria but does report difficulty initiating void. He typically takes an over-the- counter herbal supplement to assist with this. Reason For Visit: COPD,EXACERBATION Physical Exam Vital Signs: Temp Pulse Resp BP Pulse Ox 98.1 F 93 24 H 124/68 96 03/30/18 12:36 03/30/18 14:39 03/30/18 14:39 03/30/18 12:36 03/30/18 14:39 Intake & Output 03/29/18 03/30/18 03/31/18 06:59 06:59 06:59 Intake Total 650 Output Total 1140 Balance -490 Weight 72.2 kg General appearance: PRESENT: no acute distress, cooperative, well-developed, well-nourished Head exam: PRESENT: atraumatic, normocephalic Eye exam: PRESENT: conjunctiva pink, EOMI, PERRLA. ABSENT: scleral icterus Ear exam: PRESENT: normal external ear exam Mouth exam: PRESENT: moist, tongue midline Neck exam: ABSENT: carotid bruit, JVD, lymphadenopathy, thyromegaly Respiratory exam: PRESENT: decreased breath sounds, prolonged expiratory phas, rhonchi - Occasional; significantly improved from yesterday, symmetrical, unlabored, other - Supplemental oxygen via nasal cannula. ABSENT: rales Cardiovascular exam: PRESENT: RRR. ABSENT: diastolic murmur, rubs, systolic murmur Pulses: PRESENT: normal dorsalis pedis pul Vascular exam: PRESENT: normal capillary refill GI/Abdominal exam: PRESENT: normal bowel sounds, soft. ABSENT: distended, guarding, mass, organolmegaly, rebound, tenderness Rectal exam: PRESENT: deferred Extremities exam: PRESENT: full ROM. ABSENT: calf tenderness, clubbing, pedal edema Neurological exam: PRESENT: alert, awake, oriented to person, oriented to place , oriented to time, oriented to situation, CN II-XII grossly intact. ABSENT: motor sensory deficit Psychiatric exam: PRESENT: appropriate affect, normal mood. ABSENT: homicidal ideation, suicidal ideation Skin exam: PRESENT: dry, intact, warm. ABSENT: cyanosis, rash Results Laboratory Results: 03/30/18 04:41 03/30/18 04:41 03/30/18 03/30/18 03/30/18 04:41 04:41 13:30 WBC 11.5 H RBC 4.19 L Hgb 11.9 L Hct 35.1 L MCV 84 MCH 28.3 MCHC 33.8 RDW 15.7 H Plt Count 218 Seg Neutrophils % Not Reportable Lymphocytes % Not Reportable Monocytes % Not Reportable Eosinophils % Not Reportable Basophils % Not Reportable Absolute Neutrophils Not Reportable Absolute Lymphocytes Not Reportable Absolute Monocytes Not Reportable Absolute Eosinophils Not Reportable Absolute Basophils Not Reportable Sodium 127.7 L Potassium 4.4 Chloride 93 L Carbon Dioxide 27 Anion Gap 8 BUN 20 Creatinine 0.87 Est GFR ( Amer) > 60 Est GFR (Non-Af Amer) > 60 Glucose 116 H Calcium 9.0 Urine Color Urine Appearance Urine pH Ur Specific [place] Urine Protein Urine Glucose (UA) Urine Ketones Urine Blood Urine Nitrite Ur Leukocyte Esterase Urine WBC (Auto) Urine RBC (Auto) Urine Osmolality 295 L 03/30/18 13:30 WBC RBC Hgb Hct MCV MCH MCHC RDW Plt Count Seg Neutrophils % Lymphocytes % Monocytes % Eosinophils % Basophils % Absolute Neutrophils Absolute Lymphocytes Absolute Monocytes Absolute Eosinophils Absolute Basophils Sodium Potassium Chloride Carbon Dioxide Anion Gap BUN Creatinine Est GFR ( Amer) Est GFR (Non-Af Amer) Glucose Calcium Urine Color YELLOW Urine Appearance CLEAR Urine pH 6.0 Ur Specific [place] 1.010 Urine Protein NEGATIVE Urine Glucose (UA) NEGATIVE Urine Ketones NEGATIVE Urine Blood NEGATIVE Urine Nitrite NEGATIVE Ur Leukocyte Esterase NEGATIVE Urine WBC (Auto) 0 Urine RBC (Auto) 1 Urine Osmolality 03/29/18 03/29/18 03/29/18 05:43 05:43 05:43 Creatine Kinase 28 L CK-MB (CK-2) 1.21 Troponin I < 0.012 NT-Pro-B Natriuret Pep 559 H Impressions: Chest X-Ray 03/29/18 00:46 FINDINGS/IMPRESSION: Cardiomegaly status post median sternotomy. Pulmonary vasculature is unremarkable. Diffuse bilateral reticulation, right greater than left. Superimposed infection is a possibility. No large pleural effusions are seen. No acute osseous findings. Assessment & Plan - Diagnosis (1) Acute and chronic respiratory failure with hypoxia Is this a current diagnosis for this admission?: Yes Plan: Acute exacerbation has resolved. The patient is now comfortable on his baseline oxygen requirement without tachypnea, tachycardia. He further denies fever, chills, orthopnea, cough, chest pain and palpitations. He confirms that he has returned to his typical respiratory status. Chest x-ray revealed chronic pulmonary fibrosis; possibility of overlying infection cannot be ruled out. The patient is admitted to the medical floor on continuous cardiac telemetry. He is provided supplemental oxygen as needed to maintain his oxygen saturations greater than 88%. BiPAP nightly and as needed. Continue scheduled and as needed nebulizer treatments. Mucinex twice daily. Continue oral prednisone therapy. (2) Hypertension Is this a current diagnosis for this admission?: Yes Plan: Blood pressures are acceptable on his home medication regiment: metoprolol, isosorbide, and Cardura are continued. IV hydralazine as needed for blood pressure control. (3) Hyperlipidemia Is this a current diagnosis for this admission?: Yes Plan: We will continue the patient's home dose atorvastatin. (4) Pulmonary fibrosis Is this a current diagnosis for this admission?: Yes Plan: Plan as above. (5) COPD exacerbation Is this a current diagnosis for this admission?: Yes Plan: Improved; Plan as above. (6) CAD (coronary artery disease) Is this a current diagnosis for this admission?: Yes Plan: Patient has a history of CAD, hypertension, hyperlipidemia, CABG in 2013 and 2014. Stable and without chest pain at this time. We will continue his home medications as above. We will monitor on continuous cardiac telemetry. (7) CHF (congestive heart failure) Qualifiers: Heart failure chronicity: chronic Is this a current diagnosis for this admission?: Yes Plan: Stable and without current exacerbation. Echocardiogram (2016) revealed LVEF 60%, mild pulmonary hypertension. Serial troponins were negative. ProBNP 559. No evidence of fluid volume overload; CXR reveals extensive pulmonary fibrosis, difficult to assess for pulmonary edema. He does have coarse rhonchi throughout. No peripheral edema. We will continue the patient's home medications as above. He is on a cardiac diet; will place a 2 L fluid restriction. Daily weights. Strict I&Os. (8) Hyponatremia Is this a current diagnosis for this admission?: Yes Plan: The patient was admitted with a sodium of 130.7; has trended down to 127.7. From previous labs it does appear that he is mildly hyponatremic at baseline, although, generally around 134. Urine sodium and osmolality are both low; this may indicate primary polydipsia. We will continue gentle IV fluids; NS at 50ml/hr He has been placed on a free-water fluid restriction of 2L daily. Will monitor daily weights and strict I&Os Continue to monitor with daily chemistry. (9) Restless leg syndrome Is this a current diagnosis for this admission?: Yes Plan: Some improvement with Requip 0.25 mg nightly last night. Patient continues to have restless legs during the daytime hours. We will increase Requip to 0.25 mg twice daily. (10) Difficulty urinating Is this a current diagnosis for this admission?: Yes Plan: Likely secondary to BPH; pt declines rectal exam. Confirms he utilizes an over- the-counter herbal supplement to assist with this. Urinalysis is negative for UTI. We will start tamsulosin daily. - Time Time Spent with patient: 15-24 minutes Medications reviewed and adjusted accordingly: Yes Anticipated discharge: Home Within: within 24 hours - Pending improvement in Na
[2018-03-30] MEDS: TAMSULOSIN HCL 0.4 MG CAP.SR.24H PO SCH (18:08)
[2018-03-30] MEDS: MONTELUKAST SODIUM 10 MG TABLET PO SCH (21:32)
[2018-03-30] MEDS: ZOLPIDEM TARTRATE 5 MG TABLET PO SCH (21:32)
[2018-03-30] MEDS: ATORVASTATIN CALCIUM 10 MG TABLET PO SCH (21:32)
[2018-03-30] MEDS: ROPINIROLE HCL 0.25 MG TABLET PO SCH (21:33)
[2018-03-31] MEDS: IPRATROPIUM/ALBUTEROL 0.5-2.5 MG/3 ML AMPUL NEB SCH ×4 (02:04→20:31)
[2018-03-31] MEDS: TRAMADOL HCL 50 MG TABLET PO PRN ×3 (04:02→19:52)
[2018-03-31] MEDS: NORMAL SALINE 1000 ML 1,000 ML IV PRN (04:16)
[2018-03-31 06:06] LABS: HEMATOCRIT 35.9 % (37.9-51.0); HEMOGLOBIN 12.2 g/dL (13.5-17.0); MEAN CORPUSCULAR HEMOGLOBIN 28.7 pg (27.0-33.4); MEAN CORPUSCULAR HGB CONC 33.9 g/dL (32.0-36.0); MEAN CORPUSCULAR VOLUME 85 fl (80-97); PLATELET COUNT 224 10^3/uL (150-450); RED BLOOD COUNT 4.24 10^6/uL (4.35-5.55); WHITE BLOOD COUNT 9.3 10^3/uL (4.0-10.5)
[2018-03-31] MEDS: HEPARIN SOD (PORCINE) 5,000 UNIT/ML 1 ML SYRINGE SUBCUT SCH ×3 (06:11→21:22)
[2018-03-31] MEDS: ALPRAZOLAM 0.5 MG TABLET PO PRN (06:11)
[2018-03-31 06:28] LABS: ANION GAP 8 (5-19); BLOOD UREA NITROGEN 21 mg/dL (7-20); CALCIUM 8.7 mg/dL (8.4-10.2); CARBON DIOXIDE 27 mmol/L (22-30); CHLORIDE 95 mmol/L (98-107); GLUCOSE 135 mg/dL (75-110); POTASSIUM 4.3 mmol/L (3.6-5.0); SODIUM 130.3 mmol/L (137-145)
[2018-03-31] MEDS: DOXAZOSIN MESYLATE 4 MG TABLET PO SCH (08:31)
[2018-03-31] MEDS: FUROSEMIDE 40 MG TABLET PO SCH (08:31)
[2018-03-31] MEDS: PREDNISONE 20 MG TABLET PO SCH ×2 (09:53→17:16)
[2018-03-31] MEDS: FLUTICASONE NASAL SPRAY 50 MCG/SPRY 120 SPRAY/16 GM NASL SCH ×2 (09:53→21:21)
[2018-03-31] MEDS: LEVOFLOXACIN 750 MG TABLET PO SCH (09:54)
[2018-03-31] MEDS: ISOSORBIDE MONONITRATE 30 MG TAB.ER.24H PO SCH (09:54)
[2018-03-31] MEDS: METOPROLOL TARTRATE 25 MG TABLET PO SCH ×2 (09:54→21:23)
[2018-03-31] MEDS: CLOPIDOGREL BISULFATE 75 MG TABLET PO SCH (09:56)
[2018-03-31] MEDS: RANOLAZINE 500 MG TAB.SR.12H PO SCH ×2 (09:56→17:16)
[2018-03-31] MEDS: CETIRIZINE 5 MG TABLET PO SCH ×2 (09:56→17:16)
[2018-03-31] MEDS: CALCIUM CARBONATE 250 MG/VITAMIN D3 125 UNIT TABLET PO SCH (09:56)
[2018-03-31] MEDS: ROPINIROLE HCL 0.25 MG TABLET PO SCH ×2 (09:56→21:24)
[2018-03-31] MEDS ORDERED: ZOLPIDEM TARTRATE 5 MG TABLET PO PRN (16:49)
[2018-03-31] MEDS: TAMSULOSIN HCL 0.4 MG CAP.SR.24H PO SCH (17:17)
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
[2018-03-31] MEDS ORDERED: ZOLPIDEM TARTRATE 5 MG TABLET PO SCH (20:00)
[2018-03-31] MEDS: ATORVASTATIN CALCIUM 10 MG TABLET PO SCH (21:23)
[2018-03-31] MEDS: MONTELUKAST SODIUM 10 MG TABLET PO SCH (21:25)
[2018-04-01] MEDS: TRAMADOL HCL 50 MG TABLET PO PRN (02:13)
[2018-04-01] MEDS: IPRATROPIUM/ALBUTEROL 0.5-2.5 MG/3 ML AMPUL NEB SCH ×2 (02:34→08:28)
[2018-04-01 05:14] LABS: HEMATOCRIT 36.8 % (37.9-51.0); HEMOGLOBIN 12.4 g/dL (13.5-17.0); MEAN CORPUSCULAR HEMOGLOBIN 28.4 pg (27.0-33.4); MEAN CORPUSCULAR HGB CONC 33.7 g/dL (32.0-36.0); MEAN CORPUSCULAR VOLUME 84 fl (80-97); PLATELET COUNT 222 10^3/uL (150-450); RED BLOOD COUNT 4.37 10^6/uL (4.35-5.55); RED CELL DISTRIBUTION WIDTH 16.3 % (11.5-14.0); WHITE BLOOD COUNT 9.3 10^3/uL (4.0-10.5)
[2018-04-01 05:37] LABS: ANION GAP 6 (5-19); BLOOD UREA NITROGEN 21 mg/dL (7-20); CALCIUM 8.7 mg/dL (8.4-10.2); CARBON DIOXIDE 30 mmol/L (22-30); CHLORIDE 95 mmol/L (98-107); GLUCOSE 122 mg/dL (75-110); POTASSIUM 4.3 mmol/L (3.6-5.0); SODIUM 131.1 mmol/L (137-145)
[2018-04-01] MEDS: HEPARIN SOD (PORCINE) 5,000 UNIT/ML 1 ML SYRINGE SUBCUT SCH (06:25)
[2018-04-01] MEDS: FUROSEMIDE 40 MG TABLET PO SCH (09:22)
[2018-04-01] MEDS: DOXAZOSIN MESYLATE 4 MG TABLET PO SCH (09:22)
[2018-04-01] MEDS: LEVOFLOXACIN 750 MG TABLET PO SCH (09:23)
[2018-04-01] MEDS: ISOSORBIDE MONONITRATE 30 MG TAB.ER.24H PO SCH (09:23)
[2018-04-01] MEDS: METOPROLOL TARTRATE 25 MG TABLET PO SCH (09:23)
[2018-04-01] MEDS: PREDNISONE 20 MG TABLET PO SCH (09:23)
[2018-04-01] MEDS: CALCIUM CARBONATE 250 MG/VITAMIN D3 125 UNIT TABLET PO SCH (09:26)
[2018-04-01] MEDS: CLOPIDOGREL BISULFATE 75 MG TABLET PO SCH (09:26)
[2018-04-01] MEDS: ROPINIROLE HCL 0.25 MG TABLET PO SCH (09:26)
[2018-04-01] MEDS: CETIRIZINE 5 MG TABLET PO SCH (09:26)
[2018-04-01] MEDS: RANOLAZINE 500 MG TAB.SR.12H PO SCH (09:26)
[2018-04-01] MEDS: FLUTICASONE NASAL SPRAY 50 MCG/SPRY 120 SPRAY/16 GM NASL SCH (09:31)
[2018-04-01 11:03] VITALS: BP 146/72
== END 2018-04-01 13:00 | disposition home or self-care (01) | DRG 189 ==
LOC: ER 00:36 → EH 04:29 → OBSVTOIN 04:29 → 3W 11:36
PROVIDERS: ADMIT Internal Medicine; ATTEND Internal Medicine
PROC: 5A09457 Assistance with Respiratory Ventilation, 24-96 Consecutive Hours, Continuous Positive Airway Pressure (ICD-10-PCS; principal; 2018-03-29)
DX: J96.21 Acute and chronic respiratory failure with hypoxia (principal); J44.0 Chronic obstructive pulmonary disease with (acute) lower respiratory infection; E87.1 Hypo-osmolality and hyponatremia; J44.1 Chronic obstructive pulmonary disease with (acute) exacerbation; J20.9 Acute bronchitis, unspecified; G47.33 Obstructive sleep apnea (adult) (pediatric); Z99.81 Dependence on supplemental oxygen; J84.10 Pulmonary fibrosis, unspecified; I11.0 Hypertensive heart disease with heart failure; I50.9 Heart failure, unspecified; N40.1 Benign prostatic hyperplasia with lower urinary tract symptoms; G47.00 Insomnia, unspecified; E78.5 Hyperlipidemia, unspecified; I25.10 Atherosclerotic heart disease of native coronary artery without angina pectoris; G25.81 Restless legs syndrome; M19.90 Unspecified osteoarthritis, unspecified site; Z87.891 Personal history of nicotine dependence; Z79.899 Other long term (current) drug therapy; Z88.2 Allergy status to sulfonamides; Z86.11 Personal history of tuberculosis
CPT/HCPCS: 36415; 71045; 80048; 80053; 81001; 82550; 82553; 82803; 83880; 83935; 84300; 84484; 85025; 85027; 93005; 93010; 94640; 94660; 94667; 94668; 96372; 96374; 99285; J1644; J1885; J1956; J2930; J3490; J7512; J7620

== ENCOUNTER 2018-06-17 09:00 | Inpatient (IN) | payer MEDICARE, OTHER ==
[2018-06-17 09:47] LABS: HEMATOCRIT 42.1 % (37.9-51.0); HEMOGLOBIN 14.2 g/dL (13.5-17.0); MEAN CORPUSCULAR HGB CONC 33.7 g/dL (32.0-36.0); MEAN CORPUSCULAR VOLUME 86 fl (80-97); PLATELET COUNT 307 10^3/uL (150-450); RED CELL DISTRIBUTION WIDTH 16.8 % (11.5-14.0); WHITE BLOOD COUNT 11.9 10^3/uL (4.0-10.5)
[2018-06-17] MEDS ORDERED: ALBUTEROL SULFATE 0.083% NEB 2.5 MG/3 ML AMPUL NEB ONE (09:47)
[2018-06-17] MEDS ORDERED: METHYLPREDNISOLONE INJ 125 MG/2 ML SDV IV ONE (09:47)
[2018-06-17] MEDS ORDERED: AZITHROMYCIN INJ 500 MG VIAL IV ONE (09:48)
[2018-06-17 09:59] LABS: ALANINE AMINOTRANSFERASE 13 U/L (21-72); ALBUMIN 3.8 g/dL (3.5-5.0); ALKALINE PHOSPHATASE 83 U/L (38-126); ANION GAP 14 (5-19); ASPARTATE AMINO TRANSFERASE 26 U/L (17-59); BILIRUBIN,DIRECT 0.4 mg/dL (0.0-0.4); BILIRUBIN,TOTAL 0.9 mg/dL (0.2-1.3); BLOOD UREA NITROGEN 26 mg/dL (7-20); CALCIUM 9.2 mg/dL (8.4-10.2); CARBON DIOXIDE 28 mmol/L (22-30); CHLORIDE 97 mmol/L (98-107); GLUCOSE 117 mg/dL (75-110); POTASSIUM 4.5 mmol/L (3.6-5.0); SODIUM 139.3 mmol/L (137-145); TOTAL PROTEIN 7.1 g/dL (6.3-8.2)
--- NOTE | 2018-06-17 10:03 | RADIOLOGY REPORT (SQ) ---
EXAM DESCRIPTION: CHEST SINGLE VIEW COMPLETED DATE/TIME: 06/17/2018 9:31 am REASON FOR STUDY: dyspnea COMPARISON: Chest film 08/12/2015, 08/27/2017, 03/29/2018 CT chest 02/03/2018 PET-CT 03/02/2018 EXAM PARAMETERS: NUMBER OF VIEWS: One view. TECHNIQUE: Single frontal radiographic view of the chest acquired. RADIATION DOSE: NA LIMITATIONS: None. FINDINGS: LUNGS AND PLEURA: Patient has baseline extensive pulmonary fibrosis with honeycombing and increased interstitial markings in the periphery of both lungs. Compared to the prior plain films, there is increased density around the periphery of both lungs, wor risome for superimposed interstitial edema. No pleural effusions. No pneumothorax. MEDIASTINUM AND HILAR STRUCTURES: No masses. Contour normal. HEART AND VASCULAR STRUCTURES: Old sternotomy for CABG. Borderline cardiomegaly, stable BONES: Old right clavicle fracture HARDWARE: None in the chest. OTHER: No other significant finding. IMPRESSION: Increased density of the lungs around the periphery compared to previous studies worriso me for fluid overload or congestive failure superimposed on baseline interstitial pulmonary fibrosis TECHNICAL DOCUMENTATION: JOB ID: [id number] [employer]- All Rights Reserved Reading location - IP/workstation name: [email or web address]
--- NOTE | 2018-06-17 10:09 | ER Document Report ---
ED General - General Chief Complaint: Respiratory Distress Stated Complaint: DIFFICULTY BREATHING Time Seen by Provider: 06/17/18 09:37 Information source: Patient, Relative Cannot obtain history due to: Unstable vital signs TRAVEL OUTSIDE OF THE [place] IN LAST 30 DAYS: No - HPI Patient complains to provider of: Shortness of breath Onset: Other - 82-year-old male with a history of COPD as well as heart failure and pulmonary fibrosis that presents for evaluation of shortness of breath which is worsened over the last several days developing into prominent respiratory distress this morning prompting call to EMS upon arrival EMS noted that his saturations were in the 50% range. His noted that intermittently he does have desaturations like this. When asked he states that this feels mostly like his underlying lung disease and not like his heart failure though he did have a brief episode in which she had an ache in the chest. - Related Data Allergies/Adverse Reactions: Sulfa (Sulfonamide Antibiotics) Allergy (Severe, Verified 01/02/12 08:50) hallucinates Past Medical History - General Information source: Patient, Relative - Social History Smoking Status: Former Smoker Smoking Education Provided: Yes Drug Abuse: None Lives with: Family Family History: Reviewed & Not Pertinent - Past Medical History Cardiac Medical History: Reports: Hx Coronary Artery Disease, Hx Hypertension Denies: Hx Heart Attack - JUST PX BREATHING,DISCOVERED HEART ISSUES Pulmonary Medical History: Reports: Hx Asthma - quit taking symbicort, Hx COPD - hx tb 1992 Denies: Hx Bronchitis, Hx Pneumonia Neurological Medical History: Denies: Hx Cerebrovascular Accident, Hx Seizures Renal/ Medical History: Denies: Hx Peritoneal Dialysis GI Medical History: Denies: Hx Hepatitis, Hx Hiatal Hernia, Hx Ulcer Musculoskeletal Medical History: Reports Hx Arthritis Infectious Medical History: Denies: Hx Hepatitis Past Surgical History: Reports: Hx Cardiac Surgery - bypass 2013, Hx Genitourinary Surgery - Hernia repair, Hx Open Heart Surgery - CABG 2014,. Denies: Hx Pacemaker - Immunizations Hx Diphtheria, Pertussis, Tetanus Vaccination: No Hx Pneumococcal Vaccination: 04/14/11 Review of Systems - Review of Systems -: Yes All other systems reviewed and negative Physical Exam - Vital signs Vitals: Pulse Ox 86 L 06/17/18 09:08 - General General appearance: Anxious In distress: Moderate - HEENT Head: Normocephalic Eyes: Normal Conjunctiva: Normal Cornea: Normal Extraocular movements intact: Yes Eyelashes: Normal Pupils: PERRL - Respiratory Respiratory status: Tachypnea, Tripod position Chest status: Nontender Breath sounds: Decreased air movement, Rhonchi, Wheezing Chest palpation: Normal - Cardiovascular Rhythm: Regular Heart sounds: Normal auscultation Murmur: No - Abdominal Inspection: Normal Distension: No distension Tenderness: Nontender - Back Back: Normal - Extremities General upper extremity: Normal inspection, Nontender, Normal strength, Normal temperature General lower extremity: Nontender, Edema - Trace edema in the bilateral lower extremities, Normal strength, Normal temperature - Neurological Neuro grossly intact: Yes Cognition: Normal Orientation: AAOx4 Kevin Coma Scale Eye Opening: Spontaneous Almond Coma Scale Verbal: Oriented Almond Coma Scale Motor: Obeys Commands Almond Coma Scale Total: 15 Speech: Normal Motor strength normal: LUE, RUE, LLE, RLE Sensory: Normal - Psychological Associated symptoms: Normal affect, Normal mood Course - Re-evaluation Re-evalutation: 82-year-old male who presented in profound tachypnea and respiratory distress. On initial presentation he was on CPAP per EMS and had been picked up with a saturation in the 50% range. Patient was transitioned emergently to BiPAP settings 16/8 with an FiO2 of 70%. Patient's work of breathing did improve with the initiation of BiPAP. Discussion with patient and his they note that they believe this is primarily related to his respiratory component of his CHF COPD pulmonary fibrosis constellation of diagnoses. Because his lung exam is markedly limited because of his chronic pulmonary issues may determination to use patient symptoms and sensation as guidance initiate treatment of COPD and pulmonary fibrosis with steroids albuterol and azithromycin. Initiated broad workup including venous gas, CBC CMP troponin EKG chest x-ray proBNP. Patient's chest x-ray demonstrates what is probably pulmonary edema. His troponin is low level positive, his EKG is nondiagnostic. Does not meet STEMI criteria. His proBNP is elevated likely his troponin leak as a result of fluid overload and tachycardia. He does not have active chest pain at this time, we will initiate aggressive diuresis for this patient as he may potentially have fluid overloaded this is underlying cause of shortness of breath. He did not symptomatically improve that much with the administration of steroids and albuterol. His oxygen saturation remains in the low 90s on the previously mentioned BiPAP settings. His venous blood gas has a normal pH without a profoundly elevated PCO2, does not appear that he is actively retaining large volumes of CO2. Because he is able to speak with his mask on his communicative despite his high level of support do not believe he warrants intubation at this time. In discussion with he and his he would prefer to be at this time a full code. We did discuss the limitations potentially of ventilation for him if he were to worsen he is uncertain whether or not he would want to be ventilated at this time. His seems to have a more appropriate grasp of his level of illness. I contacted the on-call hospitalist Dr. URRUTIA who is agreed to evaluate the patient for admission, I have initiated diuresis in the emergency department with Lasix IV. We will place a Hoff catheter as the patient does note he has issues with continence and he will need ins and outs monitored aggressively. - Vital Signs Vital signs: Temp Pulse Resp BP Pulse Ox 98.7 F 107 H 23 H 110/59 L 97 06/17/18 15:39 06/17/18 15:39 06/17/18 15:39 06/17/18 15:39 06/17/18 15:39 - Laboratory Result Diagrams: 06/17/18 09:16 06/17/18 09:16 Laboratory results interpreted by me: 06/17/18 06/17/18 06/17/18 09:16 09:16 09:16 WBC 11.9 H RDW 16.8 H Seg Neuts % (Manual) 92 H Lymphocytes % (Manual) 4 L Abs Neuts (Manual) 10.9 H Chloride 97 L BUN 26 H Glucose 117 H ALT 13 L NT-Pro-B Natriuret Pep 2700 H Urine Protein Urine Ketones Urine Ascorbic Acid 06/17/18 11:47 WBC RDW Seg Neuts % (Manual) Lymphocytes % (Manual) Abs Neuts (Manual) Chloride BUN Glucose ALT NT-Pro-B Natriuret Pep Urine Protein 30 H Urine Ketones 80 H Urine Ascorbic Acid 40 H Critical Care Note - Critical Care Note Total time excluding time spent on procedures (mins): 45 Discharge - Discharge Clinical Impression: Shortness of breath, Acute and chronic respiratory failure with hypoxia, Pulmonary fibrosis Condition: Serious Disposition: ADMITTED INPATIENT Admitting Provider: Hospitalist Unit Admitted: [facility]
[2018-06-17 10:11] LABS: ABSOLUTE LYMPHOCYTES# (MANUAL) 0.5 10^3/uL (0.5-4.7); ABSOLUTE MONOCYTES # (MANUAL) 0.4 10^3/uL (0.1-1.4); ABSOLUTE NEUTROPHILS# (MANUAL) 10.9 10^3/uL (1.7-8.2); BASOPHILS % (MANUAL) 0 % (0-2); EOSINOPHILS % (MANUAL) 1 % (0-6); LYMPHOCYTES % (MANUAL) 4 % (13-45); MONOCYTES % (MANUAL) 3 % (3-13); SEGMENTED NEUTROPHILS % (MAN) 92 % (42-78); TOTAL CELLS COUNTED 100
[2018-06-17 10:13] LABS: ANISOCYTOSIS 1+; OVALOCYTES SLIGHT; PLATELET COMMENT ADEQUATE; TOXIC GRANULATION SLIGHT; TOXIC VACUOLATION PRESENT
[2018-06-17 10:38] LABS: TROPONIN I 0.269 ng/mL
--- NOTE | 2018-06-17 11:24 | EKG REPORT ---
SEVERITY:- ABNORMAL ECG - SINUS TACHYCARDIA LEFT BUNDLE BRANCH BLOCK : Confirmed by: Goldy Carrillo 17-Jun-2018 11:23:29
[2018-06-17] MEDS ORDERED: FUROSEMIDE INJ/PF 40 MG/4 ML SDV IV ONE (11:26)
[2018-06-17 12:06] LABS: VENOUS BLOOD BASE EXCESS 3.2 mmol/L; VENOUS BLOOD HCO3 29.2 mmol/L (20-32); VENOUS BLOOD PCO2 49.4 mmHg (35-63); VENOUS BLOOD PH 7.39 (7.30-7.42)
[2018-06-17 12:08] LABS: APPEARANCE,URINE SLIGHTLY-CLOUDY; BILIRUBIN,URINE NEGATIVE (NEGATIVE); COLOR,URINE AMBER; GLUCOSE, URINE NEGATIVE (NEGATIVE); KETONES,URINE 80 mg/dL (NEGATIVE); LEUKOCYTE ESTERASE,URINE NEGATIVE (NEGATIVE); NITRITE,URINE NEGATIVE (NEGATIVE); PROTEIN,URINE 30 mg/dL (NEGATIVE); UROBILINOGEN,URINE NEGATIVE mg/dL (<2.0)
--- NOTE | 2018-06-17 13:53 | PDOC H&P ---
History of Present Illness Admission Date/PCP: 06/17/18 12:23 BRIJESH WHITE MD Patient complains of: Worsening shortness of breath History of Present Illness: JOSUE REINA is a 82 year old male past medical with extensive past medical history of CAD status post CABG and PCI x7 stents, peripheral arterial disease, COPD, idiopathic pulmonary fibrosis, COPD, obstructive sleep apnea, prostate cancer status post chemoradiation, lung cancer diagnosed in 2016 status post radiation. Last hospitalization on 03/2018 for acute on chronic respiratory failure secondary to COPD exacerbation where he stayed 3 days and received empiric antibiotics nebs and BiPAP. Patient presented to ED complaining of worsening shortness of breath, pleuritic chest pain, and increased oxygen demand. He states that he saturates 2 levels of 55% on exertion and 80% at rest. He is on continuous 5 L oxygen at home CPAP at night. He denies any sick contact, recent travel, any fever, chills, cough, nausea, vomiting, diarrhea, constipation or any urinary symptoms. Endorses low appetite , weight loss of 41 pounds since last February, Past Medical History Cardiac Medical History: Reports: Coronary Artery Disease, Hypertension Denies: Myocardial Infarction - JUST PX BREATHING,DISCOVERED HEART ISSUES Pulmonary Medical History: Reports: Asthma - quit taking symbicort, Chronic Obstructive Pulmonary Disease (COPD) - hx tb 1992 Denies: Bronchitis, Pneumonia Neurological Medical History: Denies: Seizures GI Medical History: Denies: Hepatitis, Hiatal Hernia Musculoskeltal Medical History: Reports: Arthritis Hematology: Denies: Anemia, Sickle Cell Disease Past Surgical History Past Surgical History: Denies: Pacemaker Social History Smoking Status: Former Smoker Frequency of Alcohol Use: None Hx Recreational Drug Use: No Drugs: None Hx Prescription Drug Abuse: No Family History Family History: Reviewed & Not Pertinent Parental Family History Reviewed: Yes Children Family History Reviewed: Yes Sibling(s) Family History Reviewed.: Yes Medication/Allergy Home Medications: Isosorbide Mononitrate [Imdur] 60 mg PO DAILY 01/02/12 Nitroglycerin [Nitrostat 0.4 mg (1/150 Gr) Tabs 25/Bottle] 0.4 mg SL PRN PRN 03/07 Ranolazine [Ranexa] 1,000 mg PO BID 01/02/12 Tramadol HCl [Ultram 50 mg Tablet] 100 mg PO Q6HP PRN 08/12/15 Atorvastatin Calcium [Lipitor 10 mg Tablet] 10 mg PO QHS 04/18/16 Cetirizine HCl [Zyrtec 5 mg Tablet] 10 mg PO Q12 04/18/16 Clopidogrel Bisulfate [Plavix 75 mg Tablet] 75 mg PO DAILY 04/18/16 Bob Lycopene 15 mg PO DAILY 04/18/16 Montelukast Sodium 10 mg PO QHS 04/18/16 Potassium Chloride 10 meq PO DAILY 04/18/16 Albuterol Sulfate [Proair HFA Inhalation Aerosol 8.5 gm MDI] 2 puff IH Q6HP PRN 03/29/18 Fluticasone Propionate [Flonase Nasal Stryker 50 Mcg/Stryker 16 gm] 2 spray NASL Q12 03/29/18 Fluticasone Propionate [Flovent HFA 220 mcg MDI] 2 puff IH BID 03/29/18 Furosemide [Lasix 40 mg Tablet] 40 mg PO QAM 03/29/18 Guaifenesin [Mucinex Sr 600 mg Tablet.sa] 600 mg PO Q12 03/29/18 Ipratropium/Albuterol Sulfate [Duoneb 3 ml Ampul] 3 ml NEB RTQ6HP PRN 03/29/18 Nystatin [Mycostatin 500,000 Unit/5 ml Susp Udcup] 5 ml PO 5XDP PRN 03/29/18 Omeprazole 40 mg PO DAILY 03/29/18 Prednisone [Deltasone 5 mg Tablet] 5 mg PO DAILY 03/29/18 Umeclidinium Brm/Vilanterol Tr [Anoro Ellipta 62.5-25 Mcg INH] 1 each IH BID Zolpidem Tartrate [Ambien Cr] 12.5 mg PO HSP PRN 03/29/18 Fluticasone Furoate [Arnuity Ellipta] 1 puff IH QHS 03/30/18 Hydrocortisone [Proctosol-Hc] 1 applic TP PRN PRN 03/30/18 Multivitamin [Tab-A-Rah (Multiple Vitamin) Tablet] 1 tab PO QHS 03/30/18 Terazosin HCl [Hytrin] 5 mg PO DAILY 03/30/18 Zolpidem Tartrate [Zolpidem Tartrate ER] 6.25 mg PO QHS 03/30/18 Acetaminophen [Tylenol 325 mg Tablet] 650 mg PO Q4HP PRN tablet 03/31/18 Calcium Carbonate/Vitamin D3 [Os-Derek 250 mg with Vitamin D 125 Units] 1 tab PO DAILY tablet 03/31/18 Doxazosin Mesylate [Cardura 4 mg Tablet] 4 mg PO QAM tablet 03/31/18 Metoprolol Tartrate [Lopressor 25 mg Tablet] 12.5 mg PO Q12 tablet 03/31/18 Ropinirole HCl [Requip 0.25 mg Tablet] 0.25 mg PO Q12 #60 tablet 04/01/18 Tamsulosin HCl [Flomax 0.4 mg Cap.sr] 0.4 mg PO PCSUPPER #30 cap.sr.24h Allergies/Adverse Reactions: Sulfa (Sulfonamide Antibiotics) Allergy (Severe, Verified 01/02/12 08:50) hallucinates Review of Systems Constitutional: PRESENT: anorexia, weakness, weight loss Cardiovascular: PRESENT: chest pain, dyspnea on exertion. ABSENT: edema, orthropnea, palpitations Respiratory: PRESENT: dyspnea. ABSENT: as per HPI, cough, hemoptysis, sputum, other Gastrointestinal: ABSENT: abdominal pain, constipation, diarrhea, hematemesis, hematochezia, nausea, vomiting Musculoskeletal: ABSENT: joint swelling Neurological: ABSENT: abnormal gait, abnormal speech, confusion, dizziness, focal weakness, syncope Endocrine: ABSENT: cold intolerance, heat intolerance, polydipsia, polyuria Hematologic/Lymphatic: ABSENT: easy bleeding, easy bruising Physical Exam Vital Signs: Temp Pulse Resp BP Pulse Ox 22 H 94 06/17/18 13:27 06/17/18 13:27 Intake & Output 06/16/18 06/17/18 06/18/18 06:59 06:59 06:59 Output Total 450 Balance -450 General appearance: PRESENT: severe distress, thin Head exam: PRESENT: atraumatic, normocephalic Eye exam: PRESENT: conjunctiva pink, EOMI, PERRLA. ABSENT: scleral icterus Mouth exam: PRESENT: moist, tongue midline Neck exam: ABSENT: carotid bruit, JVD, lymphadenopathy, thyromegaly Respiratory exam: PRESENT: accessory muscle use, clear to auscultation lula, crackles - Use inspiratory crackles worse in the right lower lobe, prolonged expiratory phas. ABSENT: rales, rhonchi, wheezes Cardiovascular exam: PRESENT: RRR. ABSENT: diastolic murmur, rubs, systolic murmur Pulses: PRESENT: normal dorsalis pedis pul GI/Abdominal exam: PRESENT: normal bowel sounds, soft. ABSENT: distended, guarding, mass, organolmegaly, rebound, tenderness Extremities exam: PRESENT: full ROM. ABSENT: calf tenderness, clubbing, pedal edema Neurological exam: PRESENT: alert, awake, oriented to person, oriented to place , oriented to time, oriented to situation, CN II-XII grossly intact. ABSENT: motor sensory deficit Skin exam: PRESENT: dry, intact, warm. ABSENT: cyanosis, rash Results Laboratory Results: 06/17/18 12:28 Troponin I 0.298 Impressions: Chest X-Ray 06/17/18 09:11 IMPRESSION: Increased density of the lungs around the periphery compared to previous studies worrisome for fluid overload or congestive failure superimposed on baseline interstitial pulmonary fibrosis Assessment & Plan - Diagnosis (1) Acute and chronic respiratory failure with hypoxia Is this a current diagnosis for this admission?: Yes Plan: Multifactorial. Worsening chest x-ray compared to last admission negative for any consolidation. We will treat empirically for COPD exacerbation/hospital-acquired pneumonia. Sputum culture, blood culture, Legionella urine antigen, Haemophilus influenza type a and B. Continue DuoNeb, BiPAP, IV steroids, empiric antibiotics, long-acting antimuscarinic's. Obtain ABG to rule out any PE. Maintain SPO2 88-92%. (2) Pulmonary fibrosis Is this a current diagnosis for this admission?: No Plan: History of idiopathic pulmonary fibrosis. Sees Dr. Daniel as outpatient. (3) CAD (coronary artery disease) Is this a current diagnosis for this admission?: Yes Plan: History of CAD status post multiple stents and CABG. Restart home meds. Acute EKG changes, mildly elevated troponins could be due to demand ischemia. Continue beta-blockers, MADELIN, statins and antiplatelets. (4) CHF (congestive heart failure) Qualifiers: Heart failure type: diastolic Heart failure chronicity: chronic Qualified Code(s): I50.32 - Chronic diastolic (congestive) heart failure Is this a current diagnosis for this admission?: Yes Plan: 2D echo 2016 ejection fraction 60%, mild to moderate hypertension. Pro BNP more than 1700. Strict in and out, volume restriction, gentle diuresis guided by her vitals. (5) Restless leg syndrome Is this a current diagnosis for this admission?: Yes Plan: Restart home meds.
[2018-06-17] MEDS ORDERED: NITROGLYCERIN 0.4 MG/TAB 25 TAB/BOTTLE SL PRN (14:06)
[2018-06-17] MEDS: IPRATROPIUM/ALBUTEROL 0.5-2.5 MG/3 ML AMPUL NEB SCH ×2 (14:41→20:29)
[2018-06-17 14:48] LABS: ARTERIAL BLOOD BASE EXCESS 0 mmol/L; ARTERIAL BLOOD H2CO3 1.01 mmol/L (1.05-1.35); ARTERIAL BLOOD HCO3 23.2 mmol/L (20-24); ARTERIAL BLOOD O2 SATURATION 98.3 % (94-98); ARTERIAL BLOOD PCO2 33.5 mmHg (35-45); ARTERIAL BLOOD PH 7.46 (7.35-7.45); ARTERIAL BLOOD PO2 111.8 mmHg (80-100); ARTERIAL BLOOD TOTAL CO2 24.2 mmol/L (23-27)
[2018-06-17] MEDS: DOXAZOSIN MESYLATE 4 MG TABLET PO SCH (15:09)
[2018-06-17] MEDS: ENOXAPARIN SODIUM INJ 40 MG/0.4 ML DISP.SYRIN SUBCUT SCH (15:14)
[2018-06-17] MEDS: TRAMADOL HCL 50 MG TABLET PO PRN ×2 (15:14→21:57)
[2018-06-17 15:20] LABS: ARTERIAL BLOOD FIO2 70%
[2018-06-17] MEDS ORDERED: (PENDING PHARMACY ID) (Ranolazine [Ranexa] 1,000 MG) PO SCH (18:00)
[2018-06-17] MEDS ORDERED: (PENDING PHARMACY ID) (Umeclidinium Brm/Vilanterol Tr [Anoro Ellipta 62.5-25 Mcg Inh] 1 EA IH SCH (18:00)
[2018-06-17] MEDS: RANOLAZINE 500 MG TAB.SR.12H PO SCH (18:14)
[2018-06-17] MEDS: LANSOPRAZOLE 30 MG TAB.RAP.DR PO SCH (18:14)
[2018-06-17] MEDS: TAMSULOSIN HCL 0.4 MG CAP.SR.24H PO SCH (18:15)
[2018-06-17] MEDS: LEVOFLOXACIN 750 MG/D5W RTU 750 MG/150 ML RTUPB IV SCH (18:15)
[2018-06-17] MEDS: PIPERACILLIN SODIUM/TAZOBACTAM 3.375 GM in NORMAL SALINE 100 ML IV SCH (19:19)
[2018-06-17] MEDS: ROPINIROLE HCL 0.25 MG TABLET PO SCH (21:56)
[2018-06-17] MEDS: ATORVASTATIN CALCIUM 10 MG TABLET PO SCH (21:57)
[2018-06-17] MEDS: METOPROLOL TARTRATE 25 MG TABLET PO SCH (21:57)
[2018-06-17] MEDS: GUAIFENESIN 600 MG TABLET.SA PO SCH (21:57)
[2018-06-17] MEDS: METHYLPREDNISOLONE INJ 125 MG/2 ML SDV IV SCH (21:58)
[2018-06-18] MEDS: PIPERACILLIN SODIUM/TAZOBACTAM 3.375 GM in NORMAL SALINE 100 ML IV SCH ×5 (00:38→23:37)
[2018-06-18] MEDS: TRAMADOL HCL 50 MG TABLET PO PRN ×2 (04:00→15:29)
[2018-06-18] MEDS: LANSOPRAZOLE 30 MG TAB.RAP.DR PO SCH ×2 (05:13→18:29)
[2018-06-18] MEDS: METHYLPREDNISOLONE INJ 125 MG/2 ML SDV IV SCH ×3 (05:13→21:21)
[2018-06-18 05:51] LABS: HEMATOCRIT 40.5 % (37.9-51.0); HEMOGLOBIN 13.7 g/dL (13.5-17.0); MEAN CORPUSCULAR HEMOGLOBIN 28.9 pg (27.0-33.4); MEAN CORPUSCULAR HGB CONC 33.8 g/dL (32.0-36.0); MEAN CORPUSCULAR VOLUME 86 fl (80-97); PLATELET COUNT 309 10^3/uL (150-450); RED BLOOD COUNT 4.73 10^6/uL (4.35-5.55); RED CELL DISTRIBUTION WIDTH 16.8 % (11.5-14.0)
[2018-06-18 06:08] LABS: ABSOLUTE LYMPHOCYTES# (MANUAL) 0.7 10^3/uL (0.5-4.7); ABSOLUTE MONOCYTES # (MANUAL) 0.3 10^3/uL (0.1-1.4); BASOPHILS % (MANUAL) 0 % (0-2); EOSINOPHILS % (MANUAL) 0 % (0-6); LYMPHOCYTES % (MANUAL) 7 % (13-45); MONOCYTES % (MANUAL) 3 % (3-13); SEGMENTED NEUTROPHILS % (MAN) 90 % (42-78); TOTAL CELLS COUNTED 100
[2018-06-18 06:09] LABS: ANISOCYTOSIS 1+; PLATELET COMMENT ADEQUATE; PLATELET LARGE PRESENT; POIKILOCYTOSIS SLIGHT; SCHISTOCYTES SLIGHT; TEAR DROP CELLS SLIGHT; TOXIC GRANULATION 1+
[2018-06-18 06:10] LABS: ALANINE AMINOTRANSFERASE 18 U/L (21-72); ALBUMIN 3.3 g/dL (3.5-5.0); ALKALINE PHOSPHATASE 73 U/L (38-126); ANION GAP 13 (5-19); ASPARTATE AMINO TRANSFERASE 19 U/L (17-59); BILIRUBIN,DIRECT 0.4 mg/dL (0.0-0.4); BILIRUBIN,TOTAL 0.7 mg/dL (0.2-1.3); BLOOD UREA NITROGEN 29 mg/dL (7-20); CALCIUM 9.4 mg/dL (8.4-10.2); CARBON DIOXIDE 27 mmol/L (22-30); CHLORIDE 98 mmol/L (98-107); GLUCOSE 152 mg/dL (75-110); POTASSIUM 4.6 mmol/L (3.6-5.0); SODIUM 137.5 mmol/L (137-145); TOTAL PROTEIN 6.1 g/dL (6.3-8.2)
[2018-06-18] MEDS ORDERED: DOXAZOSIN MESYLATE 4 MG TABLET PO SCH (08:00)
[2018-06-18] MEDS: IPRATROPIUM/ALBUTEROL 0.5-2.5 MG/3 ML AMPUL NEB SCH ×3 (08:51→20:42)
[2018-06-18] MEDS ORDERED: ZOLPIDEM TARTRATE 5 MG TABLET PO PRN (09:16)
[2018-06-18] MEDS ORDERED: LORAZEPAM INJ 2 MG/1 ML VIAL IV ONE (09:30)
[2018-06-18] MEDS ORDERED: (PENDING PHARMACY ID) (Terazosin Hcl [Hytrin] 5 MG) PO SCH (10:00)
[2018-06-18] MEDS: ENOXAPARIN SODIUM INJ 40 MG/0.4 ML DISP.SYRIN SUBCUT SCH (10:10)
[2018-06-18] MEDS: METOPROLOL TARTRATE 25 MG TABLET PO SCH ×2 (10:11→21:24)
[2018-06-18] MEDS: DOXAZOSIN MESYLATE 4 MG TABLET PO SCH (10:12)
[2018-06-18] MEDS: ISOSORBIDE MONONITRATE 30 MG TAB.ER.24H PO SCH (10:13)
[2018-06-18] MEDS: CALCIUM CARBONATE 250 MG/VITAMIN D3 125 UNIT TABLET PO SCH (10:14)
[2018-06-18] MEDS: CLOPIDOGREL BISULFATE 75 MG TABLET PO SCH (10:14)
[2018-06-18] MEDS: GUAIFENESIN 600 MG TABLET.SA PO SCH ×2 (10:14→21:26)
[2018-06-18] MEDS: RANOLAZINE 500 MG TAB.SR.12H PO SCH ×2 (10:15→18:29)
[2018-06-18] MEDS: ROPINIROLE HCL 0.25 MG TABLET PO SCH ×2 (10:15→21:24)
[2018-06-18] MEDS: TIOTROPIUM BROMIDE DPI 5 CAP/KIT (18 MCG/CAP) IH SCH (10:16)
--- NOTE | 2018-06-18 11:40 | PDOC PROGRESS REPORT ---
Subjective Progress Note for:: 06/18/18 Subjective:: JOSUE REINA is a 82 year old male past medical with extensive past medical history of CAD status post CABG and PCI x7 stents, peripheral arterial disease, COPD, idiopathic pulmonary fibrosis, COPD, obstructive sleep apnea, prostate cancer status post chemoradiation, lung cancer diagnosed in 2016 status post radiation. Last hospitalization on 03/2018 for acute on chronic respiratory failure secondary to COPD exacerbation where he stayed 3 days and received empiric antibiotics nebs and BiPAP. Patient presented to ED complaining of worsening shortness of breath, pleuritic chest pain, and increased oxygen demand. He states that he saturates 2 levels of 55% on exertion and 80% at rest. He is on continuous 5 L oxygen at home CPAP at night. He denies any sick contact, recent travel, any fever, chills, cough, nausea, vomiting, diarrhea, constipation or any urinary symptoms. Endorses low appetite , weight loss of 41 pounds since last February. 06/18/2018. No acute events overnight however patient was not able to sleep unfortunately he did not receive his Ambien. Patient is saying that he could not sleep very well and he feels very anxious. Otherwise his chest pain has improved and he is still receiving BiPAP treatment inpatient. Denies any fever , chills, chest pain, nausea, vomiting, diarrhea constipation or any urinary symptoms. Reason For Visit: ACUTE ON CHRONIC HYPOXIC RESPIRATORY FAILURE Physical Exam Vital Signs: Temp Pulse Resp BP Pulse Ox 97.8 F 94 24 H 139/78 H 96 06/18/18 08:00 06/18/18 08:50 06/18/18 08:50 06/18/18 08:00 06/18/18 08:50 Intake & Output 06/17/18 06/18/18 06/19/18 06:59 06:59 06:59 Intake Total 750 Output Total 1150 Balance -400 Weight 60.9 kg General appearance: PRESENT: mild distress Respiratory exam: PRESENT: clear to auscultation lula, crackles - Expiratory crackles. ABSENT: rales, rhonchi, wheezes Cardiovascular exam: PRESENT: RRR. ABSENT: diastolic murmur, rubs, systolic murmur GI/Abdominal exam: PRESENT: normal bowel sounds, soft. ABSENT: distended, guarding, mass, organolmegaly, rebound, tenderness Neurological exam: PRESENT: alert, awake, oriented to person, oriented to place , oriented to time, oriented to situation, CN II-XII grossly intact. ABSENT: motor sensory deficit Psychiatric exam: PRESENT: anxious Results Laboratory Results: 06/18/18 05:28 06/18/18 05:28 06/17/18 06/18/18 06/18/18 14:30 05:28 05:28 WBC 10.0 RBC 4.73 Hgb 13.7 Hct 40.5 MCV 86 MCH 28.9 MCHC 33.8 RDW 16.8 H Plt Count 309 Seg Neutrophils % Not Reportable Lymphocytes % Not Reportable Monocytes % Not Reportable Eosinophils % Not Reportable Basophils % Not Reportable Absolute Neutrophils Not Reportable Absolute Lymphocytes Not Reportable Absolute Monocytes Not Reportable Absolute Eosinophils Not Reportable Absolute Basophils Not Reportable Carbonic Acid 1.01 L HCO3/H2CO3 Ratio 22:1 ABG pH 7.46 H ABG pCO2 33.5 L ABG pO2 111.8 H ABG HCO3 23.2 ABG O2 Saturation 98.3 H ABG Base Excess 0 FiO2 70% Sodium 137.5 Potassium 4.6 Chloride 98 Carbon Dioxide 27 Anion Gap 13 BUN 29 H Creatinine 0.92 Est GFR ( Amer) > 60 Est GFR (Non-Af Amer) > 60 Glucose 152 H Calcium 9.4 Total Bilirubin 0.7 AST 19 ALT 18 L Alkaline Phosphatase 73 Total Protein 6.1 L Albumin 3.3 L 06/17/18 06/17/18 12:28 16:55 Troponin I 0.298 0.285 Impressions: Chest X-Ray 06/17/18 09:11 IMPRESSION: Increased density of the lungs around the periphery compared to previous studies worrisome for fluid overload or congestive failure superimposed on baseline interstitial pulmonary fibrosis Assessment & Plan - Diagnosis (1) Acute and chronic respiratory failure with hypoxia Is this a current diagnosis for this admission?: Yes Plan: Multifactorial. Worsening chest x-ray compared to last admission negative for any consolidation. Day 2 of vancomycin/Zosyn/levofloxacin. Leukocytosis has improved. Cultures negative so far. Influenza type A/B are negative. Saturating 97% on BiPAP. Pending CTA Continue DuoNeb, BiPAP, IV steroids, empiric antibiotics, long-acting antimuscarinic's. Follow-up sputum culture, blood culture, Legionella urine antigen, Maintain SPO2 88-92%. (2) Pulmonary fibrosis Is this a current diagnosis for this admission?: No Plan: History of idiopathic pulmonary fibrosis. Sees Dr. Daniel as outpatient. Patient has changed his CODE STATUS to DO NOT INTUBATE. (3) CAD (coronary artery disease) Is this a current diagnosis for this admission?: Yes Plan: History of CAD status post multiple stents and CABG. Restart home meds. Acute EKG changes, mildly elevated troponins could be due to demand ischemia. Continue beta-blockers, MADELIN, statins and antiplatelets. (4) CHF (congestive heart failure) Qualifiers: Heart failure type: diastolic Heart failure chronicity: chronic Qualified Code(s): I50.32 - Chronic diastolic (congestive) heart failure Is this a current diagnosis for this admission?: Yes Plan: 2D echo 2016 ejection fraction 60%, mild to moderate hypertension. Pro BNP more than 1700. Fluid balance -400. Continue strict in and out, volume restriction, gentle diuresis guided by his vitals. (5) Restless leg syndrome Is this a current diagnosis for this admission?: Yes Plan: Restart home meds. (6) Difficulty urinating Is this a current diagnosis for this admission?: No Plan: Likely due to history of prostate cancer. Restart home meds. (7) Hyperlipidemia Is this a current diagnosis for this admission?: Yes Plan: Continue statins. (8) Anorexia Is this a current diagnosis for this admission?: Yes Plan: Likely due to underlying multiple. Ordered on Megace. (9) Insomnia Qualifiers: Insomnia type: unspecified Qualified Code(s): G47.00 - Insomnia, unspecified Is this a current diagnosis for this admission?: Yes Plan: Started on Ambien.
[2018-06-18] MEDS: ACETAMINOPHEN 325 MG TABLET PO PRN (15:30)
[2018-06-18] MEDS: TAMSULOSIN HCL 0.4 MG CAP.SR.24H PO SCH (18:28)
[2018-06-18] MEDS: LEVOFLOXACIN 750 MG/D5W RTU 750 MG/150 ML RTUPB IV SCH (19:24)
[2018-06-18] MEDS: ATORVASTATIN CALCIUM 10 MG TABLET PO SCH (21:25)
[2018-06-19] MEDS: PIPERACILLIN SODIUM/TAZOBACTAM 3.375 GM in NORMAL SALINE 100 ML IV SCH ×3 (05:26→17:11)
[2018-06-19] MEDS: METHYLPREDNISOLONE INJ 125 MG/2 ML SDV IV SCH ×2 (05:26→14:35)
[2018-06-19] MEDS: LANSOPRAZOLE 30 MG TAB.RAP.DR PO SCH ×2 (05:26→17:12)
[2018-06-19] MEDS: IPRATROPIUM/ALBUTEROL 0.5-2.5 MG/3 ML AMPUL NEB SCH ×2 (08:12→14:34)
[2018-06-19] MEDS: DOXAZOSIN MESYLATE 4 MG TABLET PO SCH (09:15)
[2018-06-19] MEDS: RANOLAZINE 500 MG TAB.SR.12H PO SCH ×2 (09:15→17:12)
[2018-06-19] MEDS: CLOPIDOGREL BISULFATE 75 MG TABLET PO SCH (09:16)
[2018-06-19] MEDS: ISOSORBIDE MONONITRATE 30 MG TAB.ER.24H PO SCH (09:16)
[2018-06-19] MEDS: ROPINIROLE HCL 0.25 MG TABLET PO SCH (09:16)
[2018-06-19] MEDS: ACETAMINOPHEN 325 MG TABLET PO PRN (09:17)
[2018-06-19] MEDS: TRAMADOL HCL 50 MG TABLET PO PRN (09:17)
[2018-06-19] MEDS: METOPROLOL TARTRATE 25 MG TABLET PO SCH (09:17)
[2018-06-19] MEDS: GUAIFENESIN 600 MG TABLET.SA PO SCH (09:17)
[2018-06-19] MEDS: CALCIUM CARBONATE 250 MG/VITAMIN D3 125 UNIT TABLET PO SCH (09:17)
[2018-06-19] MEDS: TIOTROPIUM BROMIDE DPI 5 CAP/KIT (18 MCG/CAP) IH SCH (09:18)
[2018-06-19] MEDS: ENOXAPARIN SODIUM INJ 40 MG/0.4 ML DISP.SYRIN SUBCUT SCH (09:18)
[2018-06-19] MEDS ORDERED: LORAZEPAM INJ 2 MG/1 ML VIAL IV ONE (09:30)
--- NOTE | 2018-06-19 11:33 | Physician Advisory Note ---
Physician Advisor ProgressNote .: Pursuant to the plan for Jay Villasenor, I have reviewed the medical record for this patient. Physician Advisor Statement: Nice documentation of chr diast CHF, & Ac on Chr resp F in this pt who needs 5L O2 at baseline - & of 41# wt loss over 4mo w/anorexia in this pt w/prior lung CA & ongoing pulm fibrosis/COPD. Please consider documenting, if you agree: 1. Make it clear in ongoing notes the underlying suspected dx requiring the abx used - & be very precise with terminology (see reference table below) - ?"Ac bronchitis", or "Healthcare-Assoc'd Gram-___ PNA", or "Hosp-Acquired Gram-___ PNA", or ... 2. "suspected protein-calorie malnutrition [state mild/mod/ sev] with BMI 22.6 , appetite loss, " & state all supporting evidence you can: A. Loss of subcut fat is mild/mod/sev, B. Loss of muscle mass is mild/mod/sev C. Informatics Specialist strength noticeably reduced (or not) D. Amt weight lost over the past week/mo/3mo/6mo/year (note usual wt, too ) E. Intake <50% of estimated energy requirements for 5-7 days, or <75% of estimated energy requirements for 1+ mo.s? -Hydraulic Press Operator can document this if consulted. & clinical importance such as: A. meat washer consult ordered, B. modified diet/supplements ordered, C. additional labs ordered, D. prolonged wound healing time, E. delayed infxn clearance] Thanks! CK PNA types, reference: A. Community-Acquired Pneumonia (CAP) = present on admission, usual community pathogens. B. HEALTHCARE-ACQUIRED pneumonia (HCAP) = due to recent contact w/ healthcare setting, typically present on admission. C. HOSPITAL-ACQUIRED pneumonia (HAP) = NOT present at time of this admission. Developed 48+ hours after admission (or causing readmission within 48 hours). CAUSED BY THIS ADMISSION. D. Ventilator-Associated pneumonia (VAP) = NOT present at time of this admission. Developed after patient intubated for >48 hours, or within 48 hours of extubation. CAUSED BY THIS ADMISSION. (If patient may have aspirated before or during intubation and the aspiration pneumonia appearance on CXR is delayed for 1-2 days, please clarify this so it is not misclassified as VAP.)
--- NOTE | 2018-06-19 11:40 | PDOC DISCHARGE SUMMARY ---
General - Admit/Disc Date/PCP Admission Date/Primary Care Provider: 06/17/18 12:23 BRIJESH WHITE MD Discharge Date: 06/19/18 - Discharge Diagnosis (1) Acute and chronic respiratory failure with hypoxia Is this a current diagnosis for this admission?: Yes (2) Pulmonary fibrosis Is this a current diagnosis for this admission?: No (3) CAD (coronary artery disease) Is this a current diagnosis for this admission?: Yes (4) CHF (congestive heart failure) Is this a current diagnosis for this admission?: Yes (5) Restless leg syndrome Is this a current diagnosis for this admission?: Yes (6) Difficulty urinating Is this a current diagnosis for this admission?: No (7) Hyperlipidemia Is this a current diagnosis for this admission?: Yes (8) Anorexia Is this a current diagnosis for this admission?: Yes (9) Insomnia Is this a current diagnosis for this admission?: Yes - Additional Information Resuscitation Status: Do Not Intubate Prescriptions: Guaifenesin [Mucinex Sr 600 mg Tablet.sa] 600 mg PO Q12 15 Days #30 tablet.sa Lorazepam [Ativan 1 mg Tablet] 1 mg PO Q4 PRN 7 Days #20 tab PRN Reason: Prednisone [Prednisone 1 Mg Tablet] 20 mg PO DAILY 3 Days #3 tablet Tiotropium [place] [Spiriva Handihaler 5 Cap/Kit (18 Mcg/Cap)] 1 cap IH DAILY 30 Days #3 kit Home Medications: Isosorbide Mononitrate [Imdur] 60 mg PO DAILY 01/02/12 Nitroglycerin [Nitrostat 0.4 mg (1/150 Gr) Tabs 25/Bottle] 0.4 mg SL Q5MP PRN Ranolazine [Ranexa] 1,000 mg PO BID 01/02/12 Tramadol HCl [Ultram 50 mg Tablet] 100 mg PO Q6HP PRN 08/12/15 Atorvastatin Calcium [Lipitor 10 mg Tablet] 10 mg PO QHS 04/18/16 Cetirizine HCl [Zyrtec 5 mg Tablet] 10 mg PO Q12 04/18/16 Clopidogrel Bisulfate [Plavix 75 mg Tablet] 75 mg PO DAILY 04/18/16 Bob Lycopene 15 mg PO DAILY 04/18/16 Montelukast Sodium 10 mg PO QHS 10/05/16 Potassium Chloride 10 meq PO DAILY 04/18/16 Albuterol Sulfate [Proair HFA Inhalation Aerosol 8.5 gm MDI] 2 puff IH Q6HP PRN 03/29/18 Fluticasone Propionate [Flonase Nasal Mahomet 50 Mcg/Mahomet 16 gm] 2 spray NASL Q12 03/29/18 Fluticasone Propionate [Flovent HFA 220 mcg MDI] 2 puff IH BID 03/29/18 Furosemide [Lasix 40 mg Tablet] 20 mg PO BID 03/29/18 Guaifenesin [Mucinex Sr 600 mg Tablet.sa] 600 mg PO Q12 03/29/18 Ipratropium/Albuterol Sulfate [Duoneb 3 ml Ampul] 3 ml NEB RTQ6HP PRN 03/29/18 Nystatin [Mycostatin 500,000 Unit/5 ml Susp Udcup] 5 ml PO 5XDP PRN 03/29/18 Omeprazole 40 mg PO DAILY 03/29/18 Prednisone [Deltasone 5 mg Tablet] 5 mg PO DAILY 03/29/18 Umeclidinium Brm/Vilanterol Tr [Anoro Ellipta 62.5-25 Mcg INH] 1 each IH BID Zolpidem Tartrate [Ambien Cr] 12.5 mg PO HSP PRN 03/29/18 Fluticasone Furoate [Arnuity Ellipta] 1 puff IH QHS 03/30/18 Hydrocortisone [Proctosol-Hc] 1 applic TP PRN PRN 03/30/18 Multivitamin [Tab-A-Rah (Multiple Vitamin) Tablet] 1 tab PO QHS 03/30/18 Terazosin HCl [Hytrin] 5 mg PO DAILY 03/30/18 Zolpidem Tartrate [Zolpidem Tartrate ER] 6.25 mg PO QHS 03/30/18 Calcium Carbonate/Vitamin D3 [Os-Derek 250 mg with Vitamin D 125 Units] 1 tab PO DAILY tablet 03/31/18 Doxazosin Mesylate [Cardura 4 mg Tablet] 4 mg PO QAM tablet 03/31/18 Metoprolol Tartrate [Lopressor 25 mg Tablet] 12.5 mg PO Q12 tablet 03/31/18 Ropinirole HCl [Requip 0.25 mg Tablet] 0.25 mg PO Q12 #60 tablet 04/01/18 Tamsulosin HCl [Flomax 0.4 mg Cap.sr] 0.4 mg PO PCSUPPER #30 cap.sr.24h Acetaminophen [Tylenol 325 mg Tablet] 650 mg PO Q4HP PRN 06/17/18 Guaifenesin [Mucinex Sr 600 mg Tablet.sa] 600 mg PO Q12 15 Days #30 tablet.sa Lorazepam [Ativan 1 mg Tablet] 1 mg PO Q4 PRN 7 Days #20 tab 06/19/18 Prednisone [Prednisone 1 Mg Tablet] 20 mg PO DAILY 3 Days #3 tablet 06/19/18 Tiotropium [place] [Spiriva Handihaler 5 Cap/Kit (18 Mcg/Cap)] 1 cap IH DAILY 30 Days #3 kit 06/19/18 History of Present Illness History of Present Illness: JOSUE REINA is a 82 year old male past medical with extensive past medical history of CAD status post CABG and PCI x7 stents, peripheral arterial disease, COPD, idiopathic pulmonary fibrosis, COPD, obstructive sleep apnea, prostate cancer status post chemoradiation, lung cancer diagnosed in 2016 status post radiation. Last hospitalization on 03/2018 for acute on chronic respiratory failure secondary to COPD exacerbation where he stayed 3 days and received empiric antibiotics nebs and BiPAP. Patient presented to ED complaining of worsening shortness of breath, pleuritic chest pain, and increased oxygen demand. He states that he saturates 2 levels of 55% on exertion and 80% at rest. He is on continuous 5 L oxygen at home CPAP at night. He denies any sick contact, recent travel, any fever, chills, cough, nausea, vomiting, diarrhea, constipation or any urinary symptoms. Endorses low appetite , weight loss of 41 pounds since last February, Hospital Course Hospital Course: (1) Acute and chronic respiratory failure with hypoxia Multifactorial. She has history of multiple hospitalization. Likely due to underlying worsening idiopathic pulmonary fibrosis/HCAP/CAP. 06/15/2018. Chest x-ray positive for increase in size of the lungs around the periphery compared to previous studies worrisome for fluid overload or congestive heart failure superimposed on baseline interstitial pulmonary fibrosis. CTA could not be done due to patient not tolerate the procedure. Started on empiric antibiotics to cover for HCAP. Receive 4 days of vancomycin/ Zosyn/levofloxacin. Leukocytosis has improved. Cultures negative so far. Influenza type A/B are negative. Saturating 97% on BiPAP. Continue DuoNeb, BiPAP, IV steroids, long-acting antimuscarinic's. Cultures negative so far. Pending Legionella urine antigen. Maintain SPO2 88-92%. Patient decided to be transferred to inpatient hospice due to poor prognosis of his underlying pulmonary disease. (2) Pulmonary fibrosis History of idiopathic pulmonary fibrosis. Sees Dr. Daniel as outpatient. Patient has changed his CODE STATUS to DO NOT INTUBATE. (3) CAD (coronary artery disease) History of CAD status post multiple stents and CABG. Restart home meds. Acute EKG changes, mildly elevated troponins could be due to demand ischemia. Continue beta-blockers, MADELIN, statins and antiplatelets. (4) CHF (congestive heart failure) 2D echo 2015 ejection fraction 60%, mild to moderate hypertension. Pro BNP more than 1700. Fluid balance is +137 Continue strict in and out, volume restriction, gentle diuresis guided by his vitals. (5) Restless leg syndrome Restart home meds. (6) Difficulty urinating Likely due to history of prostate cancer. Restart home meds. (7) Hyperlipidemia Continue statins. (8) Anorexia Likely due to underlying multiple comorbidities Mild protein calorie malnutrition with BMI of 22.6 likely due to low appetite, but her underlying comorbidities. Mild loss of subcutaneous fat, muscle mass and weight loss of more than 41 pounds in the last 3 months Take is less than 50% of estimated energy requirement. Dietitian consulted of discharge and the nurse called me back and said that they are recommending appetite stimulant. Patient was sent home on Megace. (9) Insomnia Started on Ambien. Physical Exam Vital Signs: Temp Pulse Resp BP Pulse Ox 97.8 F 89 18 103/54 L 95 06/19/18 07:52 06/19/18 08:12 06/19/18 08:12 06/19/18 07:52 06/19/18 08:12 Intake & Output 06/18/18 06/19/18 06/20/18 06:59 06:59 06:59 Intake Total 750 987 100 Output Total 1150 850 Balance -400 137 100 Weight 60.9 kg 63.6 kg General appearance: PRESENT: mild distress Head exam: PRESENT: atraumatic, normocephalic Respiratory exam: PRESENT: crackles, decreased breath sounds, prolonged expiratory phas. ABSENT: rales, rhonchi, wheezes GI/Abdominal exam: PRESENT: normal bowel sounds, soft. ABSENT: distended, guarding, mass, organolmegaly, rebound, tenderness Neurological exam: PRESENT: alert, awake, oriented to person, oriented to place , oriented to time, oriented to situation, CN II-XII grossly intact. ABSENT: motor sensory deficit Results Laboratory Results: 06/18/18 05:28 06/18/18 05:28 06/17/18 14:30 Hoff Catheter Legionella Urinary Antigen - Final 06/17/18 06/17/18 06/18/18 12:28 16:55 18:03 Troponin I 0.298 0.285 0.147 Impressions: Chest X-Ray 06/17/18 09:11 IMPRESSION: Increased density of the lungs around the periphery compared to previous studies worrisome for fluid overload or congestive failure superimposed on baseline interstitial pulmonary fibrosis Qualifiers - * PATIENT BEING DISCHARGED WITH ANY OF THE FOLLOWING DIAGNOSIS: No VTE patient discharged on overlapping Therapy?: Yes
[2018-06-19] MEDS: TAMSULOSIN HCL 0.4 MG CAP.SR.24H PO SCH (17:12)
[2018-06-19] MEDS: LEVOFLOXACIN 750 MG/D5W RTU 750 MG/150 ML RTUPB IV SCH (17:13)
[2018-06-19 17:50] VITALS: BP 108/59
== END 2018-06-19 19:48 | disposition hospice, home (50) | DRG 189 ==
LOC: ER 09:00 → EH 12:23 → 3S 14:09
PROVIDERS: ADMIT Internal Medicine; ATTEND Internal Medicine
PROC: 5A09457 Assistance with Respiratory Ventilation, 24-96 Consecutive Hours, Continuous Positive Airway Pressure (ICD-10-PCS; principal; 2018-06-17)
PROC: 3E0F73Z Introduction of Anti-inflammatory into Respiratory Tract, Via Natural or Artificial Opening (ICD-10-PCS; 2018-06-17)
DX: J96.21 Acute and chronic respiratory failure with hypoxia (principal); E44.1 Mild protein-calorie malnutrition; I50.32 Chronic diastolic (congestive) heart failure; I25.10 Atherosclerotic heart disease of native coronary artery without angina pectoris; G25.81 Restless legs syndrome; Z66 Do not resuscitate; E78.00 Pure hypercholesterolemia, unspecified; R63.0 Anorexia; G47.00 Insomnia, unspecified; J84.112 Idiopathic pulmonary fibrosis; J44.9 Chronic obstructive pulmonary disease, unspecified; G47.33 Obstructive sleep apnea (adult) (pediatric); I11.0 Hypertensive heart disease with heart failure; M19.90 Unspecified osteoarthritis, unspecified site; R39.198 Other difficulties with micturition; Z68.22 Body mass index [BMI] 22.0-22.9, adult; Z79.899 Other long term (current) drug therapy; Z85.46 Personal history of malignant neoplasm of prostate; Z92.3 Personal history of irradiation; Z85.118 Personal history of other malignant neoplasm of bronchus and lung; Z91.14 Patient's other noncompliance with medication regimen; Z87.891 Personal history of nicotine dependence; Z88.2 Allergy status to sulfonamides
CPT/HCPCS: 36415; 51702; 71045; 80053; 81001; 82803; 83880; 84484; 85025; 87040; 93005; 93010; 94640; 94660; 96365; 96375; 99291; G8996-GN; G8997-GN; G8998-GN; J0456; J1650; J1940; J1956; J2060; J2543; J2930; J3490; J7620